=== PATIENT | female | born 1975 ===

== ENCOUNTER 2017-01-28 10:22 | Emergency (ER) | payer SELFPAY ==
[2017-01-28 10:32] VITALS: TEMP 98; O2SAT 100
--- NOTE | 2017-01-28 10:58 | RAD ---
PROCEDURE: CHEST RADIOGRAPH, 1 VIEW HISTORY: chest pain COMPARISON: None available. FINDINGS: LUNGS: Clear. PLEURA: No pneumothorax or pleural fluid seen. CARDIOVASCULAR: Normal. OSSEOUS STRUCTURES: No significant abnormalities. VISUALIZED UPPER ABDOMEN: Normal. OTHER FINDINGS: None. IMPRESSION: No acute cardiopulmonary disease appreciated.
[2017-01-28 11:07] LABS: BASO # 0.1 K/uL (0.0-0.2)
[2017-01-28 11:12] LABS: BASO % 0.7 % (0.0-2.0); EOS # 0.5 K/uL (0.0-0.7); EOS % 4.6 % (0.0-4.0); HEMATOCRIT 42.1 % (34.0-47.0); LYMPH % 26.6 % (20.0-40.0); MEAN CELL VOLUME 87.5 fL (81.0-99.0); MEAN CORPUSCULAR HEMOGLOBIN 29.7 pg (27.0-31.0); MONO # 1.2 K/uL (0.0-0.8); MONO % 10.1 % (0.0-10.0); NRBC % 0.3 % (0.0-2.0); RED CELL DISTRIBUTION WIDTH 13.6 % (11.5-14.5); WHITE BLOOD COUNT 11.4 K/uL (4.8-10.8)
[2017-01-28 11:50] LABS: CHLORIDE 102 mmol/L (98-107); POTASSIUM 4.3 mmol/L (3.6-5.2); SODIUM 135 mmol/L (132-148)
[2017-01-28 11:52] LABS: ALB/GLOB RATIO 0.9 (1.0-2.1); AST/SGOT 30 U/L (14-36); CARBON DIOXIDE 22 mmol/L (22-30); GFR AFRICAN-AMERICAN > 60
[2017-01-28 11:53] LABS: ALKALINE PHOSPHATASE 50 U/L (38-126); ALT/SGPT 28 U/L (9-52); BLOOD UREA NITROGEN 13 mg/dL (7-17); CALCIUM 9.5 mg/dl (8.6-10.4); GLUCOSE,RANDOM 95 mg/dL (65-105)
[2017-01-28 12:33] VITALS: BP 128/60; PULSE 69; RESP 12
--- NOTE | 2017-01-28 13:52 | C.PDOC ---
History Of Present Illness 41 yr old female presents to the ER with non radiating right sided chest pain for 1 week. Patient states the pain is made worse with movement with right arm and chest wall. Denies direct trauma, fever, chills, cough, palpitations, SOB, nausea, vomiting, weakness or numbness. Time Seen by Provider: 01/28/17 10:40 Chief Complaint (Nursing): Chest Pain History Per: Patient History/Exam Limitations: no limitations Onset/Duration Of Symptoms: Days (1 week) Past Medical History Reviewed: Historical Data, Nursing Documentation, Vital Signs Vital Signs: Last Vital Signs Temp 98 F 01/28/17 10:28 Pulse 69 01/28/17 12:33 Resp 12 01/28/17 12:33 BP 128/60 01/28/17 12:33 Pulse Ox 100 01/28/17 13:55 Family History: States: No Known Family Hx - Social History Hx Alcohol Use: No Hx Substance Use: No - Immunization History Hx Tetanus Toxoid Vaccination: No Hx Influenza Vaccination: No Hx Pneumococcal Vaccination: No Review Of Systems Except As Marked, All Systems Reviewed And Found Negative. Constitutional: Negative for: Fever, Chills Cardiovascular: Positive for: Chest Pain (Right sided ). Negative for: Palpitations Respiratory: Negative for: Cough, Shortness of Breath Gastrointestinal: Negative for: Nausea, Vomiting Neurological: Negative for: Weakness, Numbness Physical Exam - Physical Exam Appears: Non-toxic, No Acute Distress Skin: Warm, Dry, No Rash Head: Atraumatic, Normacephalic Oral Mucosa: Moist Chest: Symmetrical, Tenderness (Point tenderness to the right anterior chest wall) Cardiovascular: Rhythm Regular, No Murmur Respiratory: Normal Breath Sounds, No Rales, No Rhonchi, No Stridor, No Wheezing Extremity: Normal ROM, No Swelling Neurological/Psych: Oriented x3, Normal Speech, Normal Motor ED Course And Treatment - Laboratory Results Result Diagrams: 01/28/17 10:58 01/28/17 10:58 ECG: Interpreted By Me, Viewed By Me ECG Rhythm: Sinus Rhythm Rate From EC (BPM) O2 Sat by Pulse Oximetry: 100 (RA) Pulse Ox Interpretation: Normal - Other Rad CXR X-Ray: Viewed By Me, Read By Radiologist Interpretation: PROCEDURE: CHEST RADIOGRAPH, 1 VIEW. HISTORY: chest pain. COMPARISON: None available. FINDINGS: LUNGS: Clear. PLEURA: No pneumothorax or pleural fluid seen. CARDIOVASCULAR: Normal. OSSEOUS STRUCTURES: No significant abnormalities. VISUALIZED UPPER ABDOMEN: Normal. OTHER FINDINGS: None. IMPRESSION: No acute cardiopulmonary disease appreciated. Medical Decision Making Medical Decision Making: PLAN: * CXR * EKG * Troponin * CBC * CMP * Toradol IM Disposition - Disposition Referrals: [facility] [Outside] [facility] [Outside] Disposition: HOME/ ROUTINE Disposition Time: 12:00 Condition: IMPROVED Additional Instructions: Thank you for letting us take care of you today. Your provider was Dr. Alberto. You were treated for chest wall pain. The emergency medical care you received today was directed at your acute symptoms. If you were prescribed any medication, please fill it and take as directed. It may take several days for your symptoms to resolve. Return to the Emergency Department if your symptoms worsen, do not improve, or if you have any other problems. Please contact your doctor or call one of the physicians/clinics you have been referred to that are listed on the Patient Visit Information form that is included in your discharge packet. Bring any paperwork you were given at discharge with you along with any medications you are taking to your follow up visit. Our treatment cannot replace ongoing medical care by a primary care provider (PCP) outside of the emergency department. Thank you for allowing the [facility] team to be part of your care today. Follow up with the clinic for outpatient care in 3-5 days. Prescriptions: Ibuprofen [Motrin] 600 mg PO Q6 PRN #20 tab PRN Reason: Pain, Moderate (4-7) Instructions: Costochondritis (ED) Forms: Eferio (Romanian) - Clinical Impression Clinical Impression: Costochondritis - Scribe Statement The provider has reviewed the documentation as recorded by the Charlesibe Nancy Price Provider Attestation: All medical record entries made by the Charlesiblogan were at my direction and personally dictated by me. I have reviewed the chart and agree that the record accurately reflects my personal performance of the history, physical exam, medical decision making, and the department course for this patient. I have also personally directed, reviewed, and agree with the discharge instructions and disposition.
--- NOTE | 2017-01-31 12:41 | CARD ---
APPROVED REPORT EKG Measurement Heart [id number] <Conclusion> Normal sinus rhythm Normal ECG
== END 2017-01-28 12:33 | disposition home or self-care (01) ==
LOC: C.ER 10:22
DX: M94.0 Chondrocostal junction syndrome [Tietze] (principal)
CPT/HCPCS: 71010; 80053; 84484; 85025; 96374; 99284; J1885

== ENCOUNTER 2017-03-30 16:22 | Inpatient (IN) | payer OTHER ==
[2017-03-30 17:17] LABS: BASO # 0.1 K/uL (0.0-0.2); BASO % 0.8 % (0.0-2.0); EOS # 0.4 K/uL (0.0-0.7); HEMATOCRIT 37.6 % (34.0-47.0); LYMPH # 1.8 K/uL (1.0-4.3); LYMPH % 24.8 % (20.0-40.0); MEAN CORPUSCULAR HEMOGLOBIN 27.6 pg (27.0-31.0); MEAN CORPUSCULAR HGB CONC 32.6 g/dL (33.0-37.0); MEAN PLATELET VOLUME 7.6 fL (7.2-11.7); MONO # 0.7 K/uL (0.0-0.8); MONO % 9.4 % (0.0-10.0); NRBC % 0.3 % (0.0-2.0); RED CELL DISTRIBUTION WIDTH 13.7 % (11.5-14.5); WHITE BLOOD COUNT 7.1 K/uL (4.8-10.8)
--- NOTE | 2017-03-30 17:18 | C.PDOC ---
History Of Present Illness 42 year old female presents to the ED c/o pleuritic type upper back pain worsens with movement of her right arm and deep breaths. Patient was seen in the ED in mid January labs were normal and CXR was read as unremarkable and she was given Ibuprofen. She states taking her Ibuprofen with relief but her medication ran out. Patient reports last week she started feeling SOB developed a cough with yellowish sputum and a subjective fever. Patient reports that when she was 18 she was treated for TB. She states she has been well and denies night sweats or weight loss. Patient denies swelling of her legs, CP, palpitations, headache, dizziness, nausea, vomit. Time Seen by Provider: 03/30/17 16:56 Chief Complaint (Nursing): Chest Pain History Per: Patient History/Exam Limitations: no limitations Onset/Duration Of Symptoms: Days Current Symptoms Are (Timing): Still Present Quality: "Pain" Modifying Factors: None Exacerbating Factors: Movement, Deep Breathing Alleviating Factors: None Recent travel outside of the [place]: No Additional History Per: Patient Past Medical History Reviewed: Historical Data, Nursing Documentation, Vital Signs Vital Signs: Last Vital Signs Temp 97.9 F 03/30/17 16:33 Pulse 78 03/30/17 19:00 Resp 16 03/30/17 19:00 BP 123/66 03/30/17 19:00 Pulse Ox 100 03/30/17 20:03 - Medical History PMH: No Chronic Diseases Surgical History: No Surg Hx Family History: States: Unknown Family Hx - Social History Hx Alcohol Use: No Hx Substance Use: No - Immunization History Hx Tetanus Toxoid Vaccination: No Hx Influenza Vaccination: No Hx Pneumococcal Vaccination: No Review Of Systems Constitutional: Positive for: Fever, Sweats. Negative for: Chills, Weight loss Cardiovascular: Negative for: Chest Pain, Palpitations Respiratory: Positive for: Cough, SOB with Excertion, Sputum Gastrointestinal: Negative for: Nausea, Vomiting, Abdominal Pain Musculoskeletal: Positive for: Back Pain Skin: Negative for: Rash Neurological: Negative for: Weakness, Numbness, Headache Physical Exam - Physical Exam Appears: Non-toxic, No Acute Distress Skin: Normal Color, Warm, Dry Head: Atraumatic, Normacephalic Nose: No Discharge, No Deformity Oral Mucosa: Moist Neck: Normal ROM, Supple Chest: Symmetrical Cardiovascular: Rhythm Regular, No Murmur Respiratory: Normal Breath Sounds, No Rales, No Rhonchi, No Wheezing Gastrointestinal/Abdominal: Soft, No Tenderness, No Distention, No Rebound Extremity: Normal ROM, No Pedal Edema, No Calf Tenderness, No Deformity, No Swelling Neurological/Psych: Oriented x3, Normal Speech, Normal Cognition Gait: Steady ED Course And Treatment - Laboratory Results Result Diagrams: 03/30/17 17:13 03/30/17 17:13 Lab Interpretation: Normal O2 Sat by Pulse Oximetry: 100 (On RA) Pulse Ox Interpretation: Normal - Radiology CXR: Interpreted by [place] CXR Interpretation: Yes: Infiltrates (RUL), Other (small right pleural effusion) - CT Scan/US CT Angio Chest Other Rad Studies (CT/US): Read By Radiologist, Radiology Report Reviewed CT/US Interpretation: EXAM: CT Angiography Chest With Intravenous Contrast. EXAM DATE/TIME: 03/30/2017 5:07 PM. CLINICAL HISTORY: 42 years old, female; Signs and symptoms; Shortness of breath; Additional info: SOB. TECHNIQUE: Axial computed tomographic angiography images of the chest with intravenous contrast using. pulmonary embolism protocol. All CT scans at this facility use one or more dose reduction. techniques, viz.: automated exposure control; ma/ kV adjustment per patient size (including targeted. exams where dose is matched to indication; i.e. head); or iterative reconstruction technique. MIP reconstructed images were created and reviewed. Coronal and sagittal reformatted images were created and reviewed. CONTRAST: 100 mL of [id number] administered intravenously. COMPARISON: Portable chest 01/28/17. FINDINGS: Heart, aorta and Pulmonary arteries: Heart size is normal. There is no pericardial effusion.There is. no aneurysm or dissection. There is perfusion of the 3 arch vessels. There are no pulmonary emboli. Lungs and pleural spaces : Trachea and main bronchi are patent. There is right-sided volume loss. There is elevation of right hemidiaphragm. There is a small right pleural effusion. There is pleural thickening along the right chest wall. There is medial right upper lobe volume loss. There is patchy. right upper lobe opacity greatest medially and at the right apex. There is atelectasis and scarring at. the right base. There is more focal airspace disease in the inferior right lower lobe. Left lung is mildly hyperinflated. Left lung is clear. There is no left effusion. Mediastinum: Esophagus is unremarkable. There is a small hiatal hernia. There are no. pathologically enlarged mediastinal or hilar nodes. Thyroid: Thyroid is not optimally demonstrated. Bones/joints: There are no acute osseous abnormalities. There is early minimal degenerative. change. Soft tissues: unremarkable. Upper abdomen: There are no acute abnormalities in the visualized portion of the abdomen. There. are gallstones. IMPRESSION: Right-sided volume loss with small effusion; right upper lobe volume loss with patchy. airspace disease greatest at the apex suggest pneumonia, followup chest x-rays suggested to. document resolution; right lower lobe airspace disease atelectasis and/or infiltrate; no pathologic. adenopathy; no aneurysm, dissection or pulmonary embolus; gallstones Reevaluation Time: 21:05 Reassessment Condition: Improved (after Toradol) - Physician Consult Information Time Consulting Physician Contacted: 21:06 Physician Contacted: Max Alfonso Outcome Of Conversation: Patient to be admitted for RUL pneumonia, r/o reactivated TB. Medical Decision Making Medical Decision Making: Impression : pleuritic upper back pain, productive cough, fever Plan: * CT angio chest * EKG * Blood work * Toradol 30 mg IVP * UA Disposition - Disposition Disposition: HOSPITALIZED Disposition Time: 21:06 Condition: STABLE - Clinical Impression Clinical Impression: Pneumonia - Scribe Statement The provider has reviewed the documentation as recorded by the Scribe Hernan Ewing All medical record entries made by the Scribe were at my direction and personally dictated by me. I have reviewed the chart and agree that the record accurately reflects my personal performance of the history, physical exam, medical decision making, and the department course for this patient. I have also personally directed, reviewed, and agree with the discharge instructions and disposition.
[2017-03-30 17:19] LABS: MEAN CELL VOLUME 84.7 fL (81.0-99.0)
[2017-03-30 17:29] LABS: ALKALINE PHOSPHATASE 53 U/L (38-126); ALT/SGPT 44 U/L (9-52); AST/SGOT 23 U/L (14-36); BILIRUBIN,TOTAL 0.3 mg/dL (0.2-1.3); BLOOD UREA NITROGEN 14 mg/dL (7-17); CALCIUM 8.2 mg/dl (8.6-10.4); CARBON DIOXIDE 29 mmol/L (22-30); CHLORIDE 102 mmol/L (98-107); GFR AFRICAN-AMERICAN > 60; GLUCOSE,RANDOM 117 mg/dL (65-105); SODIUM 139 mmol/L (132-148); TOTAL PROTEIN 7.4 g/dL (6.3-8.3)
[2017-03-30] MEDS ORDERED: Iodixanol 320 mg/ml 150 ml Bottle IV ONE (18:05)
--- NOTE | 2017-03-30 19:55 | CT ---
EXAM: CT Angiography Chest With Intravenous Contrast EXAM DATE/TIME: 03/30/2017 5:07 PM CLINICAL HISTORY: 42 years old, female; Signs and symptoms; Shortness of breath; Additional info: SOB TECHNIQUE: Axial computed tomographic angiography images of the chest with intravenous contrast using pulmonary embolism protocol. All CT scans at this facility use one or more dose reduction techniques, viz.: automated exposure control; ma/kV adjustment per patient size (including targeted exams where dose is matched to indication; i.e. head); or iterative reconstruction technique. MIP reconstructed images were created and reviewed. Coronal and sagittal reformatted images were created and reviewed. CONTRAST: 100 mL of [id number] administered intravenously. COMPARISON: Portable chest 01/28/17. FINDINGS: Heart, aorta and Pulmonary arteries: Heart size is normal. There is no pericardial effusion.There is no aneurysm or dissection. There is perfusion of the 3 arch vessels. There are no pulmonary emboli. Lungs and pleural spaces: Trachea and main bronchi are patent. There is right-sided volume loss. There is elevation of right hemidiaphragm. There is a small right pleural effusion. There is pleural thickening along the right chest wall. There is medial right upper lobe volume loss. There is patchy right upper lobe opacity greatest medially and at the right apex. There is atelectasis and scarring at the right base. There is more focal airspace disease in the inferior right lower lobe. Left lung is mildly hyperinflated. Left lung is clear. There is no left effusion. Mediastinum: Esophagus is unremarkable. There is a small hiatal hernia. There are no pathologically enlarged mediastinal or hilar nodes. Thyroid: Thyroid is not optimally demonstrated. Bones/joints: There are no acute osseous abnormalities. There is early minimal degenerative change. Soft tissues: unremarkable Upper abdomen: There are no acute abnormalities in the visualized portion of the abdomen. There are gallstones. IMPRESSION: Right-sided volume loss with small effusion; right upper lobe volume loss with patchy airspace disease greatest at the apex suggest pneumonia, followup chest x-rays suggested to document resolution; right lower lobe airspace disease atelectasis and/or infiltrate; no pathologic adenopathy; no aneurysm, dissection or pulmonary embolus; gallstones
--- NOTE | 2017-03-31 01:33 | CP.PCM.HP ---
<Josephine Pollock - Last Filed: 03/31/17 01:33> History of Present Illness - History of Present Illness History of Present Illness: CC: cough HPI: Patient is a 42F with PMH of TB presents to the ED complaining of dry cough that started this morning. Patient says she has also had 2 month of achy right upper chest pain that goes directly into her back at the same level. Patient says she was concerned given her TB history which is why she decided to come in. Patient says she has tried ibuprofen for the pain which makes it better but the pain comes back when it wears off and she only takes the ibuprofen once a day. Patient was first diagnosed with TB at age 18 and she says she was treated in [place] with multiple medications "for a long time". Patient does not recall exactly how many medications or how long. Patient admits to night sweats one time this week as well as occasional generalized headache, SOB, and easy bruising. She denies chills, changes in vision/hearing, sore throat, dizziness, palpitations, abdominal pain, n/v/d/c, blood in urine/ stool, dysuria, leg pain/swelling, rashes, recent travel, sick contacts, change in appetite, and changes in weight. Patient is currently menstruating. PMD: none PMH: TB Meds: ibuprofen PRN pain PSH: denies FH: TB (mother), CVA (brother, sister, father) SH: denies tobacco/alcohol/drug use; lives with Present on Admission - Present on Admission Any Indicators Present on Admission: No Review of Systems - Review of Systems All systems: reviewed and no additional remarkable complaints except (as per HPI ) Past Patient History - Infectious Disease Hx of Infectious Diseases: None - Past Social History Smoking Status: Never Smoked - PSYCHIATRIC Hx Substance Use: No - SURGICAL HISTORY Hx Surgeries: No - ANESTHESIA Hx Anesthesia: No Meds Allergies/Adverse Reactions: Allergies Allergy/AdvReac Type Severity Reaction Status Date / Time No Known Allergies Allergy Verified 03/30/17 16:39 Physical Exam - Constitutional Appears: Non-toxic, No Acute Distress - Head Exam Head Exam: ATRAUMATIC, NORMOCEPHALIC - Eye Exam Eye Exam: EOMI, Normal appearance, PERRL - ENT Exam ENT Exam: Mucous Membranes Moist - Neck Exam Neck exam: Positive for: Normal Inspection. Negative for: Lymphadenopathy, Tenderness - Respiratory Exam Respiratory Exam: Clear to Auscultation Bilateral, NORMAL BREATHING PATTERN. absent: Accessory Muscle Use, Chest Wall Tenderness, Rales, Rhonchi, Wheezes, Respiratory Distress - Cardiovascular Exam Cardiovascular Exam: RRR, +S1, +S2. absent: Bradycardia, Tachycardia, Diastolic murmur, Gallop, Rubs, Systolic Murmur - GI/Abdominal Exam GI & Abdominal Exam: Normal Bowel Sounds, Soft. absent: Distended, Tenderness - Extremities Exam Extremities exam: Positive for: normal capillary refill, normal inspection, pedal pulses present. Negative for: calf tenderness, pedal edema - Back Exam Back exam: absent: rash noted, tenderness - Neurological Exam Neurological exam: Alert, Oriented x3 - Psychiatric Exam Psychiatric exam: Normal Affect, Normal Mood - Skin Skin Exam: Dry, Intact, Normal Color, Warm Results - Vital Signs Recent Vital Signs: Last Vital Signs Temp 98.5 F 03/30/17 23:30 Pulse 70 03/30/17 23:30 Resp 16 03/30/17 23:30 BP 144/79 03/30/17 23:30 Pulse Ox 95 03/30/17 23:30 - Labs Result Diagrams: 03/30/17 17:13 03/30/17 17:13 Labs: Laboratory Results - last 24 hr 03/30/17 03/30/17 03/30/17 17:13 17:13 17:13 WBC 7.1 RBC 4.44 Hgb 12.2 D Hct 37.6 MCV 84.7 D MCH 27.6 MCHC 32.6 L RDW 13.7 Plt Count 372 MPV 7.6 Neut % (Auto) 59.0 Lymph % (Auto) 24.8 [place] % (Auto) 9.4 Eos % (Auto) 6.0 H Baso % (Auto) 0.8 Neut # 4.2 Lymph # 1.8 [place] # 0.7 Eos # 0.4 Baso # 0.1 D-Dimer, Quantitative 1013 H Sodium 139 Potassium 4.0 Chloride 102 Carbon Dioxide 29 Anion Gap 12 BUN 14 Creatinine 0.9 Est GFR ( Amer) > 60 Est GFR (Non-Af Amer) > 60 Random Glucose 117 H Calcium 8.2 L Total Bilirubin 0.3 AST 23 ALT 44 Alkaline Phosphatase 53 Total Protein 7.4 Albumin 3.7 Globulin 3.7 Albumin/Globulin Ratio 1.0 Urine HCG, Qual 03/30/17 17:24 WBC RBC Hgb Hct MCV MCH MCHC RDW Plt Count MPV Neut % (Auto) Lymph % (Auto) [place] % (Auto) Eos % (Auto) Baso % (Auto) Neut # Lymph # [place] # Eos # Baso # D-Dimer, Quantitative Sodium Potassium Chloride Carbon Dioxide Anion Gap BUN Creatinine Est GFR ( Amer) Est GFR (Non-Af Amer) Random Glucose Calcium Total Bilirubin AST ALT Alkaline Phosphatase Total Protein Albumin Globulin Albumin/Globulin Ratio Urine HCG, Qual Negative Assessment & Plan - Assessment and Plan (Free Text) Plan: TB vs PNA * afebrile, WBCs WNL * f/u CXR * CT chest: Right-sided volume loss with small effusion; right upper lobe volume loss with patchy airspace disease greatest at the apex suggest pneumonia , followup chest x-rays suggested to document resolution; right lower lobe airspace disease atelectasis and/or infiltrate; no pathologic adenopathy; no aneurysm, dissection or pulmonary embolus; gallstones * Pulm consult (Kuldeep) - recs appreciated * ID consult (Pam) - recs appreciated * Sputum AFB x3 * sputum culture * HIV * ESR * Ceftriaxone 1g IV QD * Tylenol PRN pain Elevated D-dimer * CT chest: Right-sided volume loss with small effusion; right upper lobe volume loss with patchy airspace disease greatest at the apex suggest pneumonia , followup chest x-rays suggested to document resolution; right lower lobe airspace disease atelectasis and/or infiltrate; no pathologic adenopathy; no aneurysm, dissection or pulmonary embolus; gallstones Prohpylaxis * Heparin * Pepcid * SCDs * Urine HCG: negative <Max Alfonso P - Last Filed: 03/31/17 07:35> Results - Vital Signs Recent Vital Signs: Last Vital Signs Temp 98.0 F 03/31/17 00:10 Pulse 68 03/31/17 00:10 Resp 20 03/31/17 00:10 BP 130/74 03/31/17 00:10 Pulse Ox 100 03/31/17 00:10 - Labs Result Diagrams: 03/30/17 17:13 03/30/17 17:13 Labs: Laboratory Results - last 24 hr 03/30/17 03/30/17 03/30/17 17:13 17:13 17:13 WBC 7.1 RBC 4.44 Hgb 12.2 D Hct 37.6 MCV 84.7 D MCH 27.6 MCHC 32.6 L RDW 13.7 Plt Count 372 MPV 7.6 Neut % (Auto) 59.0 Lymph % (Auto) 24.8 [place] % (Auto) 9.4 Eos % (Auto) 6.0 H Baso % (Auto) 0.8 Neut # 4.2 Lymph # 1.8 [place] # 0.7 Eos # 0.4 Baso # 0.1 D-Dimer, Quantitative 1013 H Sodium 139 Potassium 4.0 Chloride 102 Carbon Dioxide 29 Anion Gap 12 BUN 14 Creatinine 0.9 Est GFR ( Amer) > 60 Est GFR (Non-Af Amer) > 60 Random Glucose 117 H Calcium 8.2 L Total Bilirubin 0.3 AST 23 ALT 44 Alkaline Phosphatase 53 Total Protein 7.4 Albumin 3.7 Globulin 3.7 Albumin/Globulin Ratio 1.0 Urine HCG, Qual 03/30/17 17:24 WBC RBC Hgb Hct MCV MCH MCHC RDW Plt Count MPV Neut % (Auto) Lymph % (Auto) [place] % (Auto) Eos % (Auto) Baso % (Auto) Neut # Lymph # [place] # Eos # Baso # D-Dimer, Quantitative Sodium Potassium Chloride Carbon Dioxide Anion Gap BUN Creatinine Est GFR ( Amer) Est GFR (Non-Af Amer) Random Glucose Calcium Total Bilirubin AST ALT Alkaline Phosphatase Total Protein Albumin Globulin Albumin/Globulin Ratio Urine HCG, Qual Negative Attending/Attestation - Attestation I have personally seen and examined this patient.: Yes I have fully participated in the care of the patient.: Yes I have reviewed all pertinent clinical information: Yes Notes (Text): 42 F treated for pulm TB, 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 2 months back started to have right side CP on breathing, CXR 2 months ago shows some right upper lobe volume loss and suspected scarring. CT yesterday shows small amount of right pl effusion, maddie scaring in RUL, and some soft tissue density, patient presented for persistence of symptoms, denies weight loss, fevers, loss of appetite, but c /o some night sweats, cough and pleuretic pain. Plan AFB isolation Induced sputum for AFB semear and culture Pulm consult for Bronch IR eval for diagnostic purpose drain of very small effusion if feasible Non TB cross reacting abx, starting rocephin See orders for detail.
[2017-03-31] MEDS ORDERED: Pneumococcal 23-Valent Vaccine IM ONE ×2 (03:23→14:00)
[2017-03-31 07:50] LABS: BASO % 0.6 % (0.0-2.0); EOS # 0.4 K/uL (0.0-0.7); EOS % 6.4 % (0.0-4.0); HEMATOCRIT 37.5 % (34.0-47.0); LYMPH # 1.6 K/uL (1.0-4.3); LYMPH % 23.2 % (20.0-40.0); MEAN CELL VOLUME 84.6 fL (81.0-99.0); MEAN CORPUSCULAR HGB CONC 33.1 g/dL (33.0-37.0); MEAN PLATELET VOLUME 8.1 fL (7.2-11.7); MONO # 0.7 K/uL (0.0-0.8); NRBC % 0.1 % (0.0-2.0); RED CELL DISTRIBUTION WIDTH 13.9 % (11.5-14.5); WHITE BLOOD COUNT 6.8 K/uL (4.8-10.8)
[2017-03-31 07:57] LABS: ALKALINE PHOSPHATASE 53 U/L (38-126); ALT/SGPT 34 U/L (9-52); AST/SGOT 27 U/L (14-36); BILIRUBIN,TOTAL 0.6 mg/dL (0.2-1.3); BLOOD UREA NITROGEN 14 mg/dL (7-17); CALCIUM 8.1 mg/dl (8.6-10.4); CARBON DIOXIDE 25 mmol/L (22-30); CHLORIDE 106 mmol/L (98-107); GFR AFRICAN-AMERICAN > 60; GLUCOSE,RANDOM 102 mg/dL (65-105); POTASSIUM 3.9 mmol/L (3.6-5.2); SODIUM 138 mmol/L (132-148); TOTAL PROTEIN 7.3 g/dL (6.3-8.3)
--- NOTE | 2017-03-31 09:00 | RAD ---
Chest x-ray two views History: Pneumonia. Comparison: 01/28/2017 Findings: Small right pleural effusion. Patchy increased markings at the right lung base. Reticular opacities at the right lung apex of uncertain clinical etiology. This may be related to external apparatus. Clinical correlation. Alternatively, correlation with chest CT may be helpful if clinically indicated. Impression: Small right pleural effusion. Patchy increased markings at the right lung base. Reticular opacities at the right lung apex of uncertain clinical etiology. This may be related to external apparatus. Clinical correlation. Alternatively, correlation with chest CT may be helpful if clinically indicated.
--- NOTE | 2017-03-31 12:18 | CARD ---
APPROVED REPORT EKG Measurement Heart [id number] <Conclusion> Normal sinus rhythm Normal ECG
--- NOTE | 2017-03-31 13:39 | CP.PCM.PN ---
<Kelly Wang Sommer - Last Filed: 03/31/17 15:43> Subjective - Date & Time of Evaluation Date of Evaluation: 03/31/17 Time of Evaluation: 08:50 - Subjective Subjective: Medicine Note (PGY-1)-----> Dr. Vargas's service Patient was seen and examined at bedside. Patient was resting comfortably in bed. Patient states that she is doing well and has no complaints. Patient admits to right trapzeium strain and intermittent occipital headache but denies fever, chills, cough, nausea, vomiting, chest pain, SOB, palpitations, pain with inspiration. Patient is tolerating diet and ambulating. Objective - Vital Signs/Intake and Output Vital Signs (last 24 hours): Temp Pulse Resp BP Pulse Ox 98.3 F 63 20 123/73 100 03/31/17 07:00 03/31/17 07:00 03/31/17 07:00 03/31/17 07:00 03/31/17 07:00 Intake and Output: 03/31/17 03/31/17 06:59 18:59 Intake Total 200 Balance 200 - Medications Medications: Current Medications Acetaminophen (Tylenol 325mg Tab) 650 mg PO Q6 PRN PRN Reason: Pain, moderate (4-7) Acetylcysteine (Acetylcysteine 20%) 4 ml INH RQ8 [facility] Albuterol/Ipratropium (Duoneb 3 Mg/0.5 Mg (3 Ml) Ud) 3 ml INH RQ8 [facility] Famotidine (Pepcid) 20 mg PO BID [facility] Last Admin: 03/31/17 09:41 Dose: 20 mg Heparin Sodium (Porcine) (Heparin) 5,000 units SC Q12 [facility] Last Admin: 03/31/17 09:41 Dose: 5,000 units Ceftriaxone Sodium 1 gm/ (Sodium Chloride) 100 mls @ 200 mls/hr IVPB DAILY [facility] Last Admin: 03/31/17 09:42 Dose: 200 mls/hr Pneumococcal Polyvalent Vaccine (Pneumovax 23 Vaccine) 0.5 ml IM .ONCE ONE Stop: 04/02/17 10:01 - Labs Labs: 03/31/17 07:12 03/31/17 07:12 - Constitutional Appears: Well, No Acute Distress - Head Exam Head Exam: ATRAUMATIC, NORMAL INSPECTION - Eye Exam Eye Exam: EOMI, Normal appearance - ENT Exam ENT Exam: Mucous Membranes Moist - Respiratory Exam Respiratory Exam: Clear to Ausculation Bilateral, NORMAL BREATHING PATTERN - Cardiovascular Exam Cardiovascular Exam: REGULAR RHYTHM, +S1, +S2 - GI/Abdominal Exam GI & Abdominal Exam: Soft, Normal Bowel Sounds. absent: Tenderness, Hypoactive Bowel Sounds - Extremities Exam Extremities Exam: Normal Inspection. absent: Calf Tenderness, Pedal Edema - Neurological Exam Neurological Exam: Alert, Awake, Oriented x3 - Psychiatric Exam Psychiatric exam: Normal Affect, Normal Mood - Skin Skin Exam: Normal Color, Warm Assessment and Plan (1) Strain of right trapezius muscle Assessment & Plan: Pain control * Tylenol 650mg PO Q6 prn ( Moderate pain) * Toradol 15mg IV Q6 prn ( Severe pain) Educated stretching exercise for the trapezium muscle Status: Acute (2) History of treatment for tuberculosis Assessment & Plan: Diagnosed at 18 and treated R/o active TB: * F/U AFB culture and smear Duonebs Q8H and Acetylcystein INH q8h to induce sputum production Imaging: CT chest:Right-sided volume loss with small effusion; right upper lobe volume loss with patchy airspace disease greatest at the apex suggest pneumonia, followup chest x-rays suggested to document resolution; right lower lobe airspace disease atelectasis and/or infiltrate; no pathologic adenopathy; no aneurysm, dissection or pulmonary embolus; gallstones Chest X-ray: Small right pleural effusion. Patchy increased markings at the right lung base. Reticular opacities at the right lung apex of uncertain clinical etiology. This may be related to external apparatus. Clinical correlation. Alternatively, correlation with chest CT may be helpful if clinically indicated. Status: Acute (3) Elevated d-dimer Assessment & Plan: On admission: 1013 CT Chest: Right-sided volume loss with small effusion; right upper lobe volume loss with patchy airspace disease greatest at the apex suggest pneumonia, followup chest x-rays suggested to document resolution; right lower lobe airspace disease atelectasis and/or infiltrate; no pathologic adenopathy; no aneurysm, dissection or pulmonary embolus; gallstones Status: Acute (4) Pneumonia Assessment & Plan: Possible Pneumonia as per CT chest reading CT chest:Right-sided volume loss with small effusion; right upper lobe volume loss with patchy airspace disease greatest at the apex suggest pneumonia, followup chest x-rays suggested to document resolution; right lower lobe airspace disease atelectasis and/or infiltrate; no pathologic adenopathy; no aneurysm, dissection or pulmonary embolus; gallstones Chest X-ray: Small right pleural effusion. Patchy increased markings at the right lung base. Reticular opacities at the right lung apex of uncertain clinical etiology. This may be related to external apparatus. Clinical correlation. Alternatively, correlation with chest CT may be helpful if clinically indicated. Medications: * Rocephin 1gm daily Status: Acute (5) Prophylactic measure Assessment & Plan: GI: Pepcid 20mg PO daily DVT: Risk score : 1 point; SCDs Status: Acute <AliciaMarshal H - Last Filed: 03/31/17 17:58> Objective - Vital Signs/Intake and Output Vital Signs (last 24 hours): Temp Pulse Resp BP Pulse Ox 97.8 F 75 20 126/76 98 03/31/17 15:55 03/31/17 17:03 03/31/17 15:55 03/31/17 15:55 03/31/17 15:55 Intake and Output: 03/31/17 03/31/17 06:59 18:59 Intake Total 300 Balance 300 - Medications Medications: Current Medications Acetaminophen (Tylenol 325mg Tab) 650 mg PO Q6 PRN PRN Reason: Pain, moderate (4-7) Acetylcysteine (Acetylcysteine 20%) 4 ml INH RQ8 [facility] Last Admin: 03/31/17 17:00 Dose: 4 ml Albuterol/Ipratropium (Duoneb 3 Mg/0.5 Mg (3 Ml) Ud) 3 ml INH RQ8 [facility] Last Admin: 03/31/17 17:00 Dose: 3 ml Famotidine (Pepcid) 20 mg PO DAILY [facility] Ceftriaxone Sodium 1 gm/ (Sodium Chloride) 100 mls @ 200 mls/hr IVPB DAILY [facility] Last Admin: 03/31/17 09:42 Dose: 200 mls/hr Ketorolac Tromethamine (Toradol) 15 mg IVP Q6 PRN PRN Reason: Pain, severe (8-10) Pneumococcal Polyvalent Vaccine (Pneumovax 23 Vaccine) 0.5 ml IM .ONCE ONE Stop: 04/01/17 10:01 - Labs Labs: 03/31/17 07:12 03/31/17 07:12 Attending/Attestation - Attestation I have personally seen and examined this patient.: Yes I have fully participated in the care of the patient.: Yes I have reviewed all pertinent clinical information, including history, physical exam and plan: Yes Notes (Text): 03/31/17 17:58 Medical attending: The patient was seen and examined by me as well, reviewed the above note by the medical services manager and agree. Patient was not in any acute distress when we saw her. She was not coughing, she was not having fevers, not reporting chills, she was not short of breath. She looked very comfortable when we saw her. As documented above the resident note there is a history of tuberculosis and when she came in, the patient explained to the emergency room that she was unsure if she was having musculoskeletal pain or possible reactivation of her tuberculosis and that is why she came in. She had a CT scan of the chest I looked at the right apex has a lot of scarring and may either be from the TV that she had many years ago or possibly a new pneumonia. She is on chronic antibiotics regardless So because of this she is now currently under isolation, we are trying to get sputum AFBs to induce the sputum is however this may prove to be difficult With regards to her right arm pain the patient status that she does a lot of physical labor for work, so it is possible that she could've strained a muscle. The pain is reproducible on exam Thank you so much, Marshal Vargas
[2017-03-31] MEDS ORDERED: Influenza Vaccine 60 mcg/0.5 mL SYR (4YR UP) IM ONE (14:00)
[2017-03-31] MEDS: Albuterol-Ipratrop 3 mg / 0.5 (3 ml) UD INH SCH (17:00)
[2017-03-31] MEDS: Acetylcysteine 20% Inhal Soln (4ml) INH SCH (17:00)
--- NOTE | 2017-03-31 18:30 | CP.PCM.CON ---
History of Present Illness - History of Present Illness History of Present Illness: 42 year old female presents to the ED c/o pleuritic type upper back pain Patient was seen in the ED in mid January labs were normal and CXR was read as unremarkable and she was given Ibuprofen. However last week she started feeling SOB developed a cough with yellowish sputum and a subjective fever. Patient reports that when she was 18 she was treated for TB. She states she has been well and denies night sweats or weight loss. Review of Systems - Constitutional Constitutional: As Per HPI - EENT Eyes: absent: As Per HPI, Blind Spots, Blurred Vision, Change in Vision, Decreased Night Vision, Diplopia, Discharge, Dry Eye, Exophthalmos, Floaters, Irritation, Itchy Eyes, Loss of Peripheral Vision, Pain, Photophobia, Requires Corrective Lenses, Sees Flashes, Spots in Vision, Tunnel Vision, Other Visual Disturbances, Loss of Vision, Other Nose/Mouth/Throat: absent: As Per HPI, Epistaxis, Nasal Congestion, Nasal Discharge, Nasal Obstruction, Nasal Trauma, Nose Pain, Post Nasal Drip, Sinus Pain, Sinus Pressure, Bleeding Gums, Change in Voice, Dental Pain, Dry Mouth, Dysphagia, Halitosis, Hoarsness, Lip Swelling, Mouth Lesions, Mouth Pain, Odynophagia, Sore Throat, Throat Swelling, Tongue Swelling, Facial Pain, Neck Pain, Neck Mass, Other - Breasts Breasts: absent: As Per HPI, Change in Shape, Mass, Pain, Nipple Discharge, Nipple Inversion, Skin Changes, Swelling, Other - Cardiovascular Cardiovascular: absent: As Per HPI, Acrocyanosis, Chest Pain, Chest Pain at Rest , Chest Pain with Activity, Claudication, Diaphoresis, Dyspnea, Dyspnea on Exertion, Edema, Irregular Heart Rhythm, Pain Radiating to Arm/Neck/Jaw, Leg Edema, Leg Ulcers, Lightheadedness, Orthopnea, Palpitations, Paroxysmal Nocturnal Dyspnea, Pedal Edema, Radiating Pain, Rapid Heart Rate, Slow Heart Rate, Syncope, Other - Respiratory Respiratory: As Per HPI - Gastrointestinal Gastrointestinal: absent: As Per HPI, Abdominal Pain, Belching, Bloating, Change in Bowel Habits, Change in Stool Character, Coffee Ground Emesis, Constipation, Cramping, Diarrhea, Dyspepsia, Dysphagia, Early Satiety, Excessive Flatus, Fecal Incontinence, Heartburn, Hematemesis, Hematochezia, Loose Stools, Melena, Nausea, Odynophagia, Temesmus, Vomiting, Other - Genitourinary Genitourinary: absent: As Per HPI, Change in Urinary Stream, Difficulty Urinating, Dysuria, Flank Pain, Hematuria, Pyuria, Nocturia, Urinary Incontinence, Urinary Frequency, Urinary Hesitance, Urinary Urgency, Voiding Freq/Small Amts, Freq UTI, Hx Renal/Bladder Calculi, Hx /Renal Surgery, Bladder Distension, Other - Reproductive: Female Reproductive:Female: absent: As Per HPI, Amenorrhea, Amenorrhea/ Control, Currently Menstual, Cycle <21 Days, Cycle >35 Days, Cycle Variable, Menses 1-7 Days, Menses >/= 8 Days, Menses Variable, Cycle > 4 Weeks Between, No Menses for 6 Months, Heavy Menses, Light Menses, Normal Menses, Spotting Between Cycles , S/P Hysterectomy, Menopausal, Post Menopausal, Premenarche, Abnormal Vaginal Bleeding, Dysmenorrhea, Dyspareunia, Genital Lesions, Genital Pruritis, Pelvic Pain, Prolapse Symptoms, Sexual Dysfunction, Vaginal Discharge, Vaginal Dryness , Vaginal Odor, Vaginal Pruritis, Other - Menstruation Menstruation: absent: As Per HPI, Amenorrhea, Amenorrhea/ Control, Currently Menstual, Cycle <21 Days, Cycle >35 Days, Cycle Variable, Menses 1-7 Days, Menses >/= 8 Days, Menses Variable, Cycle > 4 Weeks Between, No Menses for 6 Months, Heavy Menses, Light Menses, Normal Menses, Spotting Between Cycles , S/P Hysterectomy, Menopausal, Post Menopausal, Premenarche, Abnormal Vaginal Bleeding, Dysmenorrhea, Other - Musculoskeletal Musculoskeletal: As Per HPI - Integumentary Integumentary: absent: As Per HPI, Acne, Alopecia, Bleeding Lesions, Change in Hair, Change in Nails, Change in Pigmentation, Changing Lesions, Dry Skin, Erythema, Furuncle, Hirsutism, Lesions, New Lesions, Non-Healing Lesions, Photosensitivity, Pruritus, Rash, Skin Pain, Skin Ulcer, Sores, Striae, Swelling , Unusual Bruising, Wounds, Jaundice, Other - Neurological Neurological: absent: As Per HPI, Abnormal Gait, Abnormal Hearing, Abnormal Movements, Abnormal Speech, Behavioral Changes, Burning Sensations, Confusion, Convulsions, Disequilibrium, Dizziness, Numbness, Focal Weakness, Frequent Falls , Headaches, Lack of Coordination, Loss of Vision, Memory Loss, Paresthesias, Radicular Pain, Restless Legs, Sensory Deficit, Syncope, Tingling, Tremor, Vertigo, Weakness, Other Visual Disturbances, Other - Psychiatric Psychiatric: absent: As Per HPI, Abnormal Sleep Pattern, Anhedonia, Anxiety, Auditory Hallucinations, Behavioral Changes, Change in Appetite, Change in Libido, Confusion, Depression, Difficulty Concentrating, Hallucinations, Homicidal Ideation, Hopelessness, Irritability, Memory Loss, Mood Swings, Panic Attacks, Paranoia, Suicidal Ideation, Visual Hallucinations, Tactile Hallucinations, Other - Endocrine Endocrine: absent: As Per HPI, Change in Body Appearance, Change in Libido, Cold Intolorance, Deepening of Voice, Excessive Sweating, Fatigue, Flushing, Heat Intolorance, Increase in Ring/Shoe/Hat Size, Palpitations, Polydipsia, Polyphagia, Polyuria, Other - Hematologic/Lymphatic Hematologic: absent: As Per HPI, Easy Bleeding, Easy Bruising, Lymphadenopathy, Other Past Patient History - Infectious Disease Hx of Infectious Diseases: None - Past Medical History & Family History Past Medical History?: Yes - Past Social History Smoking Status: Never Smoked - CARDIAC Hx Cardiac Disorders: No - PULMONARY Hx Respiratory Disorders: Yes Hx Sleep Apnea: Yes - NEUROLOGICAL Hx Neurological Disorder: No - HEENT Hx HEENT Problems: No - RENAL Hx Chronic Kidney Disease: No - ENDOCRINE/METABOLIC Hx Endocrine Disorders: No - HEMATOLOGICAL/ONCOLOGICAL Hx Blood Disorders: No - INTEGUMENTARY Hx Dermatological Problems: No - MUSCULOSKELETAL/RHEUMATOLOGICAL Hx Falls: No - GASTROINTESTINAL Hx Gastrointestinal Disorders: No - GENITOURINARY/GYNECOLOGICAL Hx Genitourinary Disorders: No - PSYCHIATRIC Hx Substance Use: No - SURGICAL HISTORY Hx Surgeries: No - ANESTHESIA Hx Anesthesia: No Meds Allergies/Adverse Reactions: Allergies Allergy/AdvReac Type Severity Reaction Status Date / Time No Known Allergies Allergy Verified 03/30/17 16:39 - Medications Medications: Current Medications Acetaminophen (Tylenol 325mg Tab) 650 mg PO Q6 PRN PRN Reason: Pain, moderate (4-7) Acetylcysteine (Acetylcysteine 20%) 4 ml INH RQ8 [facility] Last Admin: 03/31/17 17:00 Dose: 4 ml Albuterol/Ipratropium (Duoneb 3 Mg/0.5 Mg (3 Ml) Ud) 3 ml INH RQ8 [facility] Last Admin: 03/31/17 17:00 Dose: 3 ml Famotidine (Pepcid) 20 mg PO DAILY [facility] Ceftriaxone Sodium 1 gm/ (Sodium Chloride) 100 mls @ 200 mls/hr IVPB DAILY [facility] Last Admin: 03/31/17 09:42 Dose: 200 mls/hr Ketorolac Tromethamine (Toradol) 15 mg IVP Q6 PRN PRN Reason: Pain, severe (8-10) Pneumococcal Polyvalent Vaccine (Pneumovax 23 Vaccine) 0.5 ml IM .ONCE ONE Stop: 04/01/17 10:01 Physical Exam - Constitutional Appears: No Acute Distress - Head Exam Head Exam: NORMOCEPHALIC - Eye Exam Eye Exam: PERRL - ENT Exam ENT Exam: Mucous Membranes Dry - Neck Exam Neck exam: Negative for: Lymphadenopathy - Respiratory Exam Respiratory Exam: Decreased Breath Sounds, Clear to Auscultation Bilateral - Cardiovascular Exam Cardiovascular Exam: REGULAR RHYTHM, +S1, +S2 - GI/Abdominal Exam GI & Abdominal Exam: Diminished Bowel Sounds, Soft. absent: Tenderness - Rectal Exam Rectal Exam: Deferred - Exam Exam: NORMAL INSPECTION - Extremities Exam Extremities exam: Negative for: pedal edema - Back Exam Back exam: absent: CVA tenderness (L), CVA tenderness (R) - Neurological Exam Neurological exam: Alert, CN II-XII Intact, Oriented x3, Reflexes Normal - Psychiatric Exam Psychiatric exam: Normal Mood Results - Vital Signs Recent Vital Signs: Last Vital Signs Temp 97.8 F 03/31/17 15:55 Pulse 75 03/31/17 17:03 Resp 20 03/31/17 15:55 BP 126/76 03/31/17 15:55 Pulse Ox 98 03/31/17 15:55 - Labs Result Diagrams: 03/31/17 07:12 03/31/17 07:12 Labs: Laboratory Results - last 24 hr 03/31/17 03/31/17 07:12 07:12 WBC 6.8 RBC 4.43 Hgb 12.4 Hct 37.5 MCV 84.6 MCH 28.0 MCHC 33.1 RDW 13.9 Plt Count 361 MPV 8.1 Neut % (Auto) 58.8 Lymph % (Auto) 23.2 [place] % (Auto) 11.0 H Eos % (Auto) 6.4 H Baso % (Auto) 0.6 Neut # 4.0 Lymph # 1.6 [place] # 0.7 Eos # 0.4 Baso # 0.0 Sodium 138 Potassium 3.9 Chloride 106 Carbon Dioxide 25 Anion Gap 11 BUN 14 Creatinine 0.8 Est GFR ( Amer) > 60 Est GFR (Non-Af Amer) > 60 Random Glucose 102 Calcium 8.1 L Total Bilirubin 0.6 AST 27 ALT 34 Alkaline Phosphatase 53 Total Protein 7.3 Albumin 3.7 Globulin 3.7 Albumin/Globulin Ratio 1.0 Assessment & Plan (1) History of treatment for tuberculosis Status: Acute (2) Pneumonia Status: Acute - Assessment and Plan (Free Text) Assessment: x ray findings consistent with old TB await afb smears to r/o re-activation ( quantiferon and PPD will both be positive ) may need FOB as not able to produce sputum
--- NOTE | 2017-03-31 18:37 | CP.PCM.CON ---
History of Present Illness - History of Present Illness History of Present Illness: right shoulder pain, related to work no cough, no sputum, no fever, no wt loss, good appetite h/o old tb treated fully at age 18 Review of Systems - Review of Systems All systems: reviewed and no additional remarkable complaints except - Musculoskeletal Musculoskeletal: Arthralgias Past Patient History - Infectious Disease Hx of Infectious Diseases: None - Past Medical History & Family History Past Medical History?: Yes - Past Social History Smoking Status: Never Smoked - CARDIAC Hx Cardiac Disorders: No - PULMONARY Hx Respiratory Disorders: Yes Hx Sleep Apnea: Yes - NEUROLOGICAL Hx Neurological Disorder: No - HEENT Hx HEENT Problems: No - RENAL Hx Chronic Kidney Disease: No - ENDOCRINE/METABOLIC Hx Endocrine Disorders: No - HEMATOLOGICAL/ONCOLOGICAL Hx Blood Disorders: No - INTEGUMENTARY Hx Dermatological Problems: No - MUSCULOSKELETAL/RHEUMATOLOGICAL Hx Falls: No - GASTROINTESTINAL Hx Gastrointestinal Disorders: No - GENITOURINARY/GYNECOLOGICAL Hx Genitourinary Disorders: No - PSYCHIATRIC Hx Substance Use: No - SURGICAL HISTORY Hx Surgeries: No - ANESTHESIA Hx Anesthesia: No Meds Allergies/Adverse Reactions: Allergies Allergy/AdvReac Type Severity Reaction Status Date / Time No Known Allergies Allergy Verified 03/30/17 16:39 - Medications Medications: Current Medications Acetaminophen (Tylenol 325mg Tab) 650 mg PO Q6 PRN PRN Reason: Pain, moderate (4-7) Acetylcysteine (Acetylcysteine 20%) 4 ml INH RQ8 [facility] Last Admin: 03/31/17 17:00 Dose: 4 ml Albuterol/Ipratropium (Duoneb 3 Mg/0.5 Mg (3 Ml) Ud) 3 ml INH RQ8 [facility] Last Admin: 03/31/17 17:00 Dose: 3 ml Famotidine (Pepcid) 20 mg PO DAILY [facility] Ceftriaxone Sodium 1 gm/ (Sodium Chloride) 100 mls @ 200 mls/hr IVPB DAILY [facility] Last Admin: 03/31/17 09:42 Dose: 200 mls/hr Ketorolac Tromethamine (Toradol) 15 mg IVP Q6 PRN PRN Reason: Pain, severe (8-10) Pneumococcal Polyvalent Vaccine (Pneumovax 23 Vaccine) 0.5 ml IM .ONCE ONE Stop: 04/01/17 10:01 Physical Exam - Constitutional Appears: No Acute Distress - Head Exam Head Exam: ATRAUMATIC, NORMOCEPHALIC - Eye Exam Eye Exam: Normal appearance - ENT Exam ENT Exam: Mucous Membranes Moist - Neck Exam Neck exam: Positive for: Normal Inspection - Respiratory Exam Respiratory Exam: Clear to Auscultation Bilateral - Cardiovascular Exam Cardiovascular Exam: REGULAR RHYTHM, +S1, +S2 - GI/Abdominal Exam GI & Abdominal Exam: Normal Bowel Sounds - Rectal Exam Rectal Exam: Deferred - Neurological Exam Neurological exam: Alert, Oriented x3 - Psychiatric Exam Psychiatric exam: Normal Affect, Normal Mood - Skin Skin Exam: Intact Results - Vital Signs Recent Vital Signs: Last Vital Signs Temp 97.8 F 03/31/17 15:55 Pulse 75 03/31/17 17:03 Resp 20 03/31/17 15:55 BP 126/76 03/31/17 15:55 Pulse Ox 98 03/31/17 15:55 - Labs Result Diagrams: 03/31/17 07:12 03/31/17 07:12 Labs: Laboratory Results - last 24 hr 03/31/17 03/31/17 07:12 07:12 WBC 6.8 RBC 4.43 Hgb 12.4 Hct 37.5 MCV 84.6 MCH 28.0 MCHC 33.1 RDW 13.9 Plt Count 361 MPV 8.1 Neut % (Auto) 58.8 Lymph % (Auto) 23.2 [place] % (Auto) 11.0 H Eos % (Auto) 6.4 H Baso % (Auto) 0.6 Neut # 4.0 Lymph # 1.6 [place] # 0.7 Eos # 0.4 Baso # 0.0 Sodium 138 Potassium 3.9 Chloride 106 Carbon Dioxide 25 Anion Gap 11 BUN 14 Creatinine 0.8 Est GFR ( Amer) > 60 Est GFR (Non-Af Amer) > 60 Random Glucose 102 Calcium 8.1 L Total Bilirubin 0.6 AST 27 ALT 34 Alkaline Phosphatase 53 Total Protein 7.3 Albumin 3.7 Globulin 3.7 Albumin/Globulin Ratio 1.0 Assessment & Plan (1) History of tuberculosis Status: Resolved (2) Post-inflammatory scarring Status: Chronic Comment: doubt active tb in light of lack of symptoms. lung findings on CT secondary to old tb (3) Shoulder pain, right Status: Acute Comment: would do shoulder x-rays
[2017-04-01] MEDS: Albuterol-Ipratrop 3 mg / 0.5 (3 ml) UD INH SCH ×3 (00:22→16:02)
[2017-04-01] MEDS: Acetylcysteine 20% Inhal Soln (4ml) INH SCH ×3 (00:22→16:02)
[2017-04-01 07:28] LABS: BASO % 0.5 % (0.0-2.0); EOS # 0.3 K/uL (0.0-0.7); EOS % 5.7 % (0.0-4.0); HEMATOCRIT 38.9 % (34.0-47.0); LYMPH # 1.5 K/uL (1.0-4.3); LYMPH % 25.6 % (20.0-40.0); MEAN CELL VOLUME 84.8 fL (81.0-99.0); MEAN CORPUSCULAR HEMOGLOBIN 27.8 pg (27.0-31.0); MEAN CORPUSCULAR HGB CONC 32.8 g/dL (33.0-37.0); MEAN PLATELET VOLUME 7.8 fL (7.2-11.7); MONO # 0.6 K/uL (0.0-0.8); NRBC % 0.1 % (0.0-2.0); RED CELL DISTRIBUTION WIDTH 13.5 % (11.5-14.5)
[2017-04-01 07:44] LABS: ALKALINE PHOSPHATASE 52 U/L (38-126); ALT/SGPT 36 U/L (9-52); AST/SGOT 21 U/L (14-36); BILIRUBIN,TOTAL 0.5 mg/dL (0.2-1.3); BLOOD UREA NITROGEN 12 mg/dL (7-17); CALCIUM 8.1 mg/dl (8.6-10.4); CARBON DIOXIDE 26 mmol/L (22-30); CHLORIDE 105 mmol/L (98-107); GFR AFRICAN-AMERICAN > 60; GLUCOSE,RANDOM 98 mg/dL (65-105); MAGNESIUM 1.8 mg/dL (1.6-2.3); PHOSPHOROUS 4.7 mg/dL (2.5-4.5); SODIUM 138 mmol/L (132-148); TOTAL PROTEIN 7.5 g/dL (6.3-8.3)
--- NOTE | 2017-04-01 07:49 | CP.PCM.PN ---
<Abimael Lane - Last Filed: 04/01/17 15:45> Subjective - Date & Time of Evaluation Date of Evaluation: 04/01/17 Time of Evaluation: 07:35 - Subjective Subjective: PGY-[address] Vargsa's service: Pt seen and examined at bedside. Nursing reports no acute events overnight. Patient found lying comfortably in bed watching TV. Patient admits slight cough , and has been able to produce sputum this AM. She denies pain in the shoulder at this time, or headache overnight. She further denies fever, chills, nausea, vomiting, chest pain, SOB, palpitations, pain with inspiration. She is moving bowels and tolerating diet without difficulty. Objective - Vital Signs/Intake and Output Vital Signs (last 24 hours): Temp Pulse Resp BP Pulse Ox 98 F 69 20 109/68 99 04/01/17 01:01 04/01/17 01:01 04/01/17 01:01 04/01/17 01:01 04/01/17 01:01 - Medications Medications: Current Medications Acetaminophen (Tylenol 325mg Tab) 650 mg PO Q6 PRN PRN Reason: Pain, moderate (4-7) Acetylcysteine (Acetylcysteine 20%) 4 ml INH RQ8 [facility] Last Admin: 04/01/17 00:22 Dose: 4 ml Albuterol/Ipratropium (Duoneb 3 Mg/0.5 Mg (3 Ml) Ud) 3 ml INH RQ8 [facility] Last Admin: 04/01/17 00:22 Dose: 3 ml Famotidine (Pepcid) 20 mg PO DAILY [facility] Ceftriaxone Sodium 1 gm/ (Sodium Chloride) 100 mls @ 200 mls/hr IVPB DAILY [facility] Last Admin: 03/31/17 09:42 Dose: 200 mls/hr Ketorolac Tromethamine (Toradol) 15 mg IVP Q6 PRN PRN Reason: Pain, severe (8-10) Pneumococcal Polyvalent Vaccine (Pneumovax 23 Vaccine) 0.5 ml IM .ONCE ONE Stop: 04/01/17 10:01 - Labs Labs: 04/01/17 07:18 03/31/17 07:12 - Constitutional Appears: Non-toxic, No Acute Distress - Head Exam Head Exam: ATRAUMATIC, NORMAL INSPECTION - Eye Exam Eye Exam: EOMI, Normal appearance. absent: Scleral icterus - ENT Exam ENT Exam: Mucous Membranes Moist - Neck Exam Neck Exam: absent: Tenderness - Respiratory Exam Respiratory Exam: Decreased Breath Sounds, NORMAL BREATHING PATTERN. absent: Rhonchi, Wheezes - Cardiovascular Exam Cardiovascular Exam: REGULAR RHYTHM, +S1, +S2 - GI/Abdominal Exam GI & Abdominal Exam: Soft, Normal Bowel Sounds. absent: Tenderness - Extremities Exam Extremities Exam: Normal Inspection. absent: Pedal Edema Additional comments: No shoulder apprehension, point tenderness in shoulder Negative Empty can - Back Exam Back Exam: absent: CVA tenderness (L), CVA tenderness (R) - Neurological Exam Neurological Exam: Alert, Awake, Oriented x3 - Psychiatric Exam Psychiatric exam: Normal Affect, Normal Mood - Skin Skin Exam: Normal Color, Warm Assessment and Plan - Assessment and Plan (Free Text) Plan: History of treatment for tuberculosis Assessment & Plan: Diagnosed at 18 and treated R/o active TB: * F/U AFB culture and smear Duonebs Q8H and Acetylcystein INH q8h to induce sputum production Imaging: CT chest:Right-sided volume loss with small effusion; right upper lobe volume loss with patchy airspace disease greatest at the apex suggest pneumonia, followup chest x-rays suggested to document resolution; right lower lobe airspace disease atelectasis and/or infiltrate; no pathologic adenopathy; no aneurysm, dissection or pulmonary embolus; gallstones Chest X-ray: Small right pleural effusion. Patchy increased markings at the right lung base. Reticular opacities at the right lung apex of uncertain clinical etiology. This may be related to external apparatus. Clinical correlation. Alternatively, correlation with chest CT may be helpful if clinically indicated. ID Consult, Dr. Orozco, help appreciated: - xrays c/w old TB. Await AFB smears - may need FOB Pulm consult, Dr. Light - doubt active TB. Lung findings on CT secondary to old TB Strain of right trapezius muscle Assessment & Plan: (04/01/17) Pt denies pain this AM - will not order Xrays at this time, but will consider if pain persists Pain control * Tylenol 650mg PO Q6 prn ( Moderate pain) * Toradol 15mg IV Q6 prn ( Severe pain) Educated stretching exercise for the trapezium muscle Status: Acute Elevated d-dimer Assessment & Plan: On admission: 1013 CT Chest: Right-sided volume loss with small effusion; right upper lobe volume loss with patchy airspace disease greatest at the apex suggest pneumonia, followup chest x-rays suggested to document resolution; right lower lobe airspace disease atelectasis and/or infiltrate; no pathologic adenopathy; no aneurysm, dissection or pulmonary embolus; gallstones Status: Acute Pneumonia, Community Aquired Assessment & Plan: Possible Pneumonia as per CT chest reading CT chest:Right-sided volume loss with small effusion; right upper lobe volume loss with patchy airspace disease greatest at the apex suggest pneumonia, followup chest x-rays suggested to document resolution; right lower lobe airspace disease atelectasis and/or infiltrate; no pathologic adenopathy; no aneurysm, dissection or pulmonary embolus; gallstones Chest X-ray: Small right pleural effusion. Patchy increased markings at the right lung base. Reticular opacities at the right lung apex of uncertain clinical etiology. This may be related to external apparatus. Clinical correlation. Alternatively, correlation with chest CT may be helpful if clinically indicated. Medications: * Rocephin 1gm daily (start 03/31/17) Status: Acute Hyperphosphatemia Phos 4.7 on AM labs - mild elevation, will monitor Prophylactic measure Assessment & Plan: GI: Pepcid 20mg PO daily DVT: Risk score : 1 point; SCDs Status: Acute Abimael Murch PGY-2 Discussed with attending, Dr. Vargas <Marshal Vargas - Last Filed: 04/01/17 17:48> Objective - Vital Signs/Intake and Output Vital Signs (last 24 hours): Temp Pulse Resp BP Pulse Ox 98.3 F 72 20 119/81 98 04/01/17 15:16 04/01/17 15:16 04/01/17 15:16 04/01/17 15:16 04/01/17 15:16 Intake and Output: 04/01/17 04/01/17 06:59 18:59 Intake Total 600 Balance 600 - Medications Medications: Current Medications Acetaminophen (Tylenol 325mg Tab) 650 mg PO Q6 PRN PRN Reason: Pain, moderate (4-7) Acetylcysteine (Acetylcysteine 20%) 4 ml INH RQ8 [facility] Last Admin: 04/01/17 16:02 Dose: 4 ml Albuterol/Ipratropium (Duoneb 3 Mg/0.5 Mg (3 Ml) Ud) 3 ml INH RQ8 [facility] Last Admin: 04/01/17 16:02 Dose: 3 ml Famotidine (Pepcid) 20 mg PO DAILY [facility] Last Admin: 04/01/17 10:17 Dose: 20 mg Ceftriaxone Sodium 1 gm/ (Sodium Chloride) 100 mls @ 200 mls/hr IVPB DAILY [facility] Last Admin: 04/01/17 10:17 Dose: 200 mls/hr Ketorolac Tromethamine (Toradol) 15 mg IVP Q6 PRN PRN Reason: Pain, severe (8-10) Pneumococcal Polyvalent Vaccine (Pneumovax 23 Vaccine) 0.5 ml IM .ONCE ONE Stop: 04/06/17 10:01 - Labs Labs: 04/01/17 07:18 04/01/17 07:18 Assessment and Plan - Assessment and Plan (Free Text) Assessment: Medical consult: Patient was seen and examined by me, agrees the above note by medical clerk. The patient reports that she did not have any acute events overnight. She feels well. She was able to give us one sputum culture - the results of which are pending at this time. Her currently waiting on additional sputum AFBs to return. She does not have white blood cell count, she does not have fevers, and blood pressure stable Today she did not have any right arm pain and she had full range of motion of the right arm Thank you very much, Marshal Vargas
[2017-04-01] MEDS ORDERED: Influenza Vaccine 60 mcg/0.5 mL SYR (4YR UP) IM ONE (10:00)
[2017-04-01] MEDS ORDERED: Pneumococcal 23-Valent Vaccine IM ONE (10:00)
--- NOTE | 2017-04-01 16:53 | CP.PCM.PN ---
Subjective - Date & Time of Evaluation Date of Evaluation: 04/01/17 Time of Evaluation: 09:00 - Subjective Subjective: afeb alerert less cough Objective - Vital Signs/Intake and Output Vital Signs (last 24 hours): Temp Pulse Resp BP Pulse Ox 98.3 F 72 20 119/81 98 04/01/17 15:16 04/01/17 15:16 04/01/17 15:16 04/01/17 15:16 04/01/17 15:16 Intake and Output: 04/01/17 04/01/17 06:59 18:59 Intake Total 600 Balance 600 - Medications Medications: Current Medications Acetaminophen (Tylenol 325mg Tab) 650 mg PO Q6 PRN PRN Reason: Pain, moderate (4-7) Acetylcysteine (Acetylcysteine 20%) 4 ml INH RQ8 [facility] Last Admin: 04/01/17 16:02 Dose: 4 ml Albuterol/Ipratropium (Duoneb 3 Mg/0.5 Mg (3 Ml) Ud) 3 ml INH RQ8 [facility] Last Admin: 04/01/17 16:02 Dose: 3 ml Famotidine (Pepcid) 20 mg PO DAILY [facility] Last Admin: 04/01/17 10:17 Dose: 20 mg Ceftriaxone Sodium 1 gm/ (Sodium Chloride) 100 mls @ 200 mls/hr IVPB DAILY [facility] Last Admin: 04/01/17 10:17 Dose: 200 mls/hr Ketorolac Tromethamine (Toradol) 15 mg IVP Q6 PRN PRN Reason: Pain, severe (8-10) - Labs Labs: 04/01/17 07:18 04/01/17 07:18 - Constitutional Appears: Non-toxic - Head Exam Head Exam: NORMOCEPHALIC - Eye Exam Eye Exam: PERRL - ENT Exam ENT Exam: Mucous Membranes Dry - Neck Exam Neck Exam: absent: Lymphadenopathy - Respiratory Exam Respiratory Exam: Decreased Breath Sounds - Cardiovascular Exam Cardiovascular Exam: REGULAR RHYTHM - GI/Abdominal Exam GI & Abdominal Exam: Distended - Rectal Exam Rectal Exam: Deferred Assessment and Plan (1) History of treatment for tuberculosis Status: Acute (2) Pneumonia Status: Acute - Assessment and Plan (Free Text) Assessment: cont rx await AFB smears likley old TB
--- NOTE | 2017-04-02 01:06 | CP.PCM.PN ---
<Kelly Wang Sommer - Last Filed: 04/02/17 01:13> Subjective - Date & Time of Evaluation Date of Evaluation: 04/02/17 Time of Evaluation: 01:10 - Subjective Subjective: Medicine Hospitalist service PGY-1 note---> Dr. Vargas's service Patient was seen and examined at bedside. As per nursing, patient has had no acute issues. Patient states that she is doing well and has no complaints. Patient denies chest pain, SOB, palpitations, cough, fever, chills, nausea, vomiting and right shoulder pain. Patient is tolerating diet and ambulating. Objective - Vital Signs/Intake and Output Vital Signs (last 24 hours): Temp Pulse Resp BP Pulse Ox 98.1 F 64 20 134/77 96 04/01/17 23:10 04/01/17 23:10 04/01/17 23:10 04/01/17 23:10 04/01/17 23:10 Intake and Output: 04/01/17 04/02/17 18:59 06:59 Intake Total 600 240 Balance 600 240 - Medications Medications: Current Medications Acetaminophen (Tylenol 325mg Tab) 650 mg PO Q6 PRN PRN Reason: Pain, moderate (4-7) Acetylcysteine (Acetylcysteine 20%) 4 ml INH RQ8 [facility] Last Admin: 04/01/17 16:02 Dose: 4 ml Albuterol/Ipratropium (Duoneb 3 Mg/0.5 Mg (3 Ml) Ud) 3 ml INH RQ8 [facility] Last Admin: 04/01/17 16:02 Dose: 3 ml Famotidine (Pepcid) 20 mg PO DAILY [facility] Last Admin: 04/01/17 10:17 Dose: 20 mg Ceftriaxone Sodium 1 gm/ (Sodium Chloride) 100 mls @ 200 mls/hr IVPB DAILY [facility] Last Admin: 04/01/17 10:17 Dose: 200 mls/hr Ketorolac Tromethamine (Toradol) 15 mg IVP Q6 PRN PRN Reason: Pain, severe (8-10) Pneumococcal Polyvalent Vaccine (Pneumovax 23 Vaccine) 0.5 ml IM .ONCE ONE Stop: 04/06/17 10:01 - Labs Labs: 04/01/17 07:18 04/01/17 07:18 - Constitutional Appears: Well, No Acute Distress - Head Exam Head Exam: ATRAUMATIC, NORMAL INSPECTION - Eye Exam Eye Exam: EOMI, Normal appearance - ENT Exam ENT Exam: Mucous Membranes Moist - Respiratory Exam Respiratory Exam: Clear to Ausculation Bilateral, NORMAL BREATHING PATTERN. absent: Decreased Breath Sounds, Rales, Rhonchi, Wheezes, Respiratory Distress, Stridor - Cardiovascular Exam Cardiovascular Exam: REGULAR RHYTHM, +S1, +S2 - GI/Abdominal Exam GI & Abdominal Exam: Soft, Normal Bowel Sounds. absent: Distended, Firm, Guarding, Rigid, Tenderness - Extremities Exam Extremities Exam: Normal Inspection. absent: Calf Tenderness, Pedal Edema - Neurological Exam Neurological Exam: Alert, Awake, Oriented x3 - Psychiatric Exam Psychiatric exam: Normal Affect, Normal Mood - Skin Skin Exam: Normal Color Assessment and Plan (1) History of treatment for tuberculosis Assessment & Plan: Pulm consult, Dr. Light - doubt active TB. Lung findings on CT secondary to old TB ID Consult, Dr. Orozco, help appreciated: - xrays c/w old TB. Await AFB smears - may need FOB Diagnosed at 18 and treated R/o active TB: * F/U AFB culture and smear Duonebs Q8H and Acetylcystein INH q8h to induce sputum production Imaging: CT chest:Right-sided volume loss with small effusion; right upper lobe volume loss with patchy airspace disease greatest at the apex suggest pneumonia, followup chest x-rays suggested to document resolution; right lower lobe airspace disease atelectasis and/or infiltrate; no pathologic adenopathy; no aneurysm, dissection or pulmonary embolus; gallstones Chest X-ray: Small right pleural effusion. Patchy increased markings at the right lung base. Reticular opacities at the right lung apex of uncertain clinical etiology. This may be related to external apparatus. Clinical correlation. Alternatively, correlation with chest CT may be helpful if clinically indicated. Status: Chronic (2) Strain of right trapezius muscle Assessment & Plan: Resolving 04/01/17) Pt denies pain this AM - will not order Xrays at this time, but will consider if pain persists Pain control * Tylenol 650mg PO Q6 prn ( Moderate pain) * Toradol 15mg IV Q6 prn ( Severe pain) Educated on stretching exercise for the trapezium muscle Status: Resolved (3) Elevated d-dimer Assessment & Plan: On admission: 1013 CT Chest: Right-sided volume loss with small effusion; right upper lobe volume loss with patchy airspace disease greatest at the apex suggest pneumonia, followup chest x-rays suggested to document resolution; right lower lobe airspace disease atelectasis and/or infiltrate; no pathologic adenopathy; no aneurysm, dissection or pulmonary embolus; gallstones Status: Acute (4) Pneumonia Assessment & Plan: Possible Pneumonia as per CT chest reading CT chest:Right-sided volume loss with small effusion; right upper lobe volume loss with patchy airspace disease greatest at the apex suggest pneumonia, followup chest x-rays suggested to document resolution; right lower lobe airspace disease atelectasis and/or infiltrate; no pathologic adenopathy; no aneurysm, dissection or pulmonary embolus; gallstones Chest X-ray: Small right pleural effusion. Patchy increased markings at the right lung base. Reticular opacities at the right lung apex of uncertain clinical etiology. This may be related to external apparatus. Clinical correlation. Alternatively, correlation with chest CT may be helpful if clinically indicated. Medications: * Rocephin 1gm daily (start 03/31/17) Status: Acute (5) Hyperphosphatemia Assessment & Plan: Phos 4.7 on AM labs - mild elevation, will monitor with next am labs Status: Acute (6) Prophylactic measure Assessment & Plan: GI: Pepcid 20mg PO daily DVT: Risk score : 1 point; SCDs Status: Acute <Marshal Vargas H - Last Filed: 04/02/17 11:36> Objective - Vital Signs/Intake and Output Vital Signs (last 24 hours): Temp Pulse Resp BP Pulse Ox 97.9 F 66 20 114/71 92 L 04/02/17 07:44 04/02/17 07:44 04/02/17 07:44 04/02/17 07:44 04/02/17 07:44 Intake and Output: 04/02/17 04/02/17 06:59 18:59 Intake Total 240 Balance 240 - Medications Medications: Current Medications Acetaminophen (Tylenol 325mg Tab) 650 mg PO Q6 PRN PRN Reason: Pain, moderate (4-7) Acetylcysteine (Acetylcysteine 20%) 4 ml INH RQ8 [facility] Last Admin: 04/02/17 08:15 Dose: 4 ml Albuterol/Ipratropium (Duoneb 3 Mg/0.5 Mg (3 Ml) Ud) 3 ml INH RQ8 [facility] Last Admin: 04/02/17 08:15 Dose: 3 ml Famotidine (Pepcid) 20 mg PO DAILY [facility] Last Admin: 04/02/17 09:45 Dose: 20 mg Ceftriaxone Sodium 1 gm/ (Sodium Chloride) 100 mls @ 200 mls/hr IVPB DAILY [facility] Last Admin: 04/02/17 09:45 Dose: 200 mls/hr Ketorolac Tromethamine (Toradol) 15 mg IVP Q6 PRN PRN Reason: Pain, severe (8-10) Pneumococcal Polyvalent Vaccine (Pneumovax 23 Vaccine) 0.5 ml IM .ONCE ONE Stop: 04/06/17 10:01 - Labs Labs: 04/02/17 08:00 04/02/17 08:00 Attending/Attestation - Attestation I have personally seen and examined this patient.: Yes I have fully participated in the care of the patient.: Yes I have reviewed all pertinent clinical information, including history, physical exam and plan: Yes Notes (Text): Medical attending: Patient was seen and examined by me as well Agree with the above When I came in to see her, she was not in any acute distress. She was talking on the phone Denied fever, denied shortness of breath, denied chest pain, denied coughing. We are pending the AFBs at the moment. thank you Marshal Vargas
[2017-04-02] MEDS: Albuterol-Ipratrop 3 mg / 0.5 (3 ml) UD INH SCH ×4 (01:40→23:49)
[2017-04-02] MEDS: Acetylcysteine 20% Inhal Soln (4ml) INH SCH ×3 (01:40→21:08)
[2017-04-02 08:26] LABS: BASO % 0.6 % (0.0-2.0); EOS # 0.5 K/uL (0.0-0.7); EOS % 7.7 % (0.0-4.0); LYMPH # 1.5 K/uL (1.0-4.3); LYMPH % 25.2 % (20.0-40.0); MEAN CELL VOLUME 84.9 fL (81.0-99.0); MEAN CORPUSCULAR HEMOGLOBIN 28.8 pg (27.0-31.0); MEAN CORPUSCULAR HGB CONC 33.9 g/dL (33.0-37.0); MONO # 0.6 K/uL (0.0-0.8); MONO % 10.2 % (0.0-10.0); NRBC % 0.1 % (0.0-2.0); WHITE BLOOD COUNT 5.9 K/uL (4.8-10.8)
[2017-04-02 08:44] LABS: ALKALINE PHOSPHATASE 55 U/L (38-126); ALT/SGPT 43 U/L (9-52); AST/SGOT 28 U/L (14-36); BILIRUBIN,TOTAL 0.7 mg/dL (0.2-1.3); BLOOD UREA NITROGEN 12 mg/dL (7-17); CALCIUM 8.4 mg/dl (8.6-10.4); CARBON DIOXIDE 25 mmol/L (22-30); CHLORIDE 103 mmol/L (98-107); GFR AFRICAN-AMERICAN > 60; GLUCOSE,RANDOM 92 mg/dL (65-105); MAGNESIUM 1.9 mg/dL (1.6-2.3); PHOSPHOROUS 3.9 mg/dL (2.5-4.5); POTASSIUM 4.2 mmol/L (3.6-5.2); SODIUM 137 mmol/L (132-148); TOTAL PROTEIN 7.7 g/dL (6.3-8.3)
[2017-04-02] MEDS ORDERED: Influenza Vaccine 60 mcg/0.5 mL SYR (4YR UP) IM ONE (10:00)
[2017-04-02] MEDS ORDERED: Pneumococcal 23-Valent Vaccine IM ONE (10:00)
--- NOTE | 2017-04-03 05:09 | CP.PCM.PN ---
<FelipeMirella mcdonaldsuly E - Last Filed: 04/03/17 05:12> Subjective - Date & Time of Evaluation Date of Evaluation: 04/03/17 Time of Evaluation: 00:40 - Subjective Subjective: Medicine Hospitalist service PGY-1 note---> Dr. Vargas's service Patient was seen and examined at bedside. As per nursing, patient has had no acute issues. Patient states that she is doing well and has no complaints. Patient denies chest pain, SOB, palpitations, cough, fever, chills, nausea, vomiting and right shoulder pain. Patient is tolerating diet and ambulating. Objective - Vital Signs/Intake and Output Vital Signs (last 24 hours): Temp Pulse Resp BP Pulse Ox 97.9 F 79 20 103/66 95 04/03/17 00:00 04/03/17 00:00 04/03/17 00:00 04/03/17 00:00 04/03/17 00:00 Intake and Output: 04/02/17 04/03/17 18:59 06:59 Intake Total 580 300 Balance 580 300 - Medications Medications: Current Medications Acetaminophen (Tylenol 325mg Tab) 650 mg PO Q6 PRN PRN Reason: Pain, moderate (4-7) Acetylcysteine (Acetylcysteine 20%) 4 ml INH RQ8 [facility] Last Admin: 04/02/17 21:08 Dose: Not Given Albuterol/Ipratropium (Duoneb 3 Mg/0.5 Mg (3 Ml) Ud) 3 ml INH RQ8 [facility] Last Admin: 04/02/17 23:49 Dose: Not Given Famotidine (Pepcid) 20 mg PO DAILY [facility] Last Admin: 04/02/17 09:45 Dose: 20 mg Ceftriaxone Sodium 1 gm/ (Sodium Chloride) 100 mls @ 200 mls/hr IVPB DAILY [facility] Last Admin: 04/02/17 09:45 Dose: 200 mls/hr Ketorolac Tromethamine (Toradol) 15 mg IVP Q6 PRN PRN Reason: Pain, severe (8-10) Pneumococcal Polyvalent Vaccine (Pneumovax 23 Vaccine) 0.5 ml IM .ONCE ONE Stop: 04/06/17 10:01 - Labs Labs: 04/02/17 08:00 04/02/17 08:00 - Constitutional Appears: Well, No Acute Distress - Head Exam Head Exam: ATRAUMATIC, NORMAL INSPECTION - Eye Exam Eye Exam: EOMI, Normal appearance - ENT Exam ENT Exam: Mucous Membranes Moist - Respiratory Exam Respiratory Exam: Clear to Ausculation Bilateral, NORMAL BREATHING PATTERN - Cardiovascular Exam Cardiovascular Exam: REGULAR RHYTHM, +S1, +S2 - GI/Abdominal Exam GI & Abdominal Exam: Soft, Normal Bowel Sounds. absent: Tenderness - Extremities Exam Extremities Exam: Normal Inspection. absent: Calf Tenderness, Pedal Edema, Tenderness - Neurological Exam Neurological Exam: Alert, Awake, Oriented x3 - Psychiatric Exam Psychiatric exam: Normal Affect, Normal Mood - Skin Skin Exam: Normal Color Assessment and Plan (1) History of treatment for tuberculosis Assessment & Plan: Pulm consult, Dr. Light - doubt active TB. Lung findings on CT secondary to old TB ID Consult, Dr. Orozco, help appreciated: - xrays c/w old TB. Await AFB smears - may need FOB Diagnosed at 18 and treated R/o active TB: * AFB culture and smear negative X1; F/u two more culture and smear Imaging: CT chest:Right-sided volume loss with small effusion; right upper lobe volume loss with patchy airspace disease greatest at the apex suggest pneumonia, followup chest x-rays suggested to document resolution; right lower lobe airspace disease atelectasis and/or infiltrate; no pathologic adenopathy; no aneurysm, dissection or pulmonary embolus; gallstones Chest X-ray: Small right pleural effusion. Patchy increased markings at the right lung base. Reticular opacities at the right lung apex of uncertain clinical etiology. This may be related to external apparatus. Clinical correlation. Alternatively, correlation with chest CT may be helpful if clinically indicated. Status: Chronic (2) Strain of right trapezius muscle Assessment & Plan: Resolved 04/01/17) Pt denies pain this AM - will not order Xrays at this time, but will consider if pain persists Pain control * Tylenol 650mg PO Q6 prn ( Moderate pain) * Toradol 15mg IV Q6 prn ( Severe pain) Educated on stretching exercise for the trapezium muscle Status: Resolved (3) Elevated d-dimer Assessment & Plan: On admission: 1013 CT Chest: Right-sided volume loss with small effusion; right upper lobe volume loss with patchy airspace disease greatest at the apex suggest pneumonia, followup chest x-rays suggested to document resolution; right lower lobe airspace disease atelectasis and/or infiltrate; no pathologic adenopathy; no aneurysm, dissection or pulmonary embolus; gallstones Status: Acute (4) Pneumonia Assessment & Plan: Possible Pneumonia as per CT chest reading CT chest:Right-sided volume loss with small effusion; right upper lobe volume loss with patchy airspace disease greatest at the apex suggest pneumonia, followup chest x-rays suggested to document resolution; right lower lobe airspace disease atelectasis and/or infiltrate; no pathologic adenopathy; no aneurysm, dissection or pulmonary embolus; gallstones Chest X-ray: Small right pleural effusion. Patchy increased markings at the right lung base. Reticular opacities at the right lung apex of uncertain clinical etiology. This may be related to external apparatus. Clinical correlation. Alternatively, correlation with chest CT may be helpful if clinically indicated. Medications: * Rocephin 1gm daily (start 03/31/17) Status: Acute (5) Hyperphosphatemia Assessment & Plan: Resolved Phos 4.7 (04/01/17) Status: Acute (6) Prophylactic measure Assessment & Plan: GI: Pepcid 20mg PO daily DVT: Risk score : 1 point; SCDs Status: Acute <Marshal Vargas H - Last Filed: 04/03/17 11:40> Objective - Vital Signs/Intake and Output Vital Signs (last 24 hours): Temp Pulse Resp BP Pulse Ox 97.8 F 75 20 108/67 97 04/03/17 09:09 04/03/17 09:09 04/03/17 09:09 04/03/17 09:09 04/03/17 09:09 Intake and Output: 04/03/17 04/03/17 06:59 18:59 Intake Total 300 Balance 300 - Medications Medications: Current Medications Acetaminophen (Tylenol 325mg Tab) 650 mg PO Q6 PRN PRN Reason: Pain, moderate (4-7) Famotidine (Pepcid) 20 mg PO DAILY [facility] Last Admin: 04/03/17 09:54 Dose: 20 mg Ceftriaxone Sodium 1 gm/ (Dextrose) 50 mls @ 100 mls/hr IVPB DAILY [facility] Last Admin: 04/03/17 09:54 Dose: 100 mls/hr Ketorolac Tromethamine (Toradol) 15 mg IVP Q6 PRN PRN Reason: Pain, severe (8-10) Pneumococcal Polyvalent Vaccine (Pneumovax 23 Vaccine) 0.5 ml IM .ONCE ONE Stop: 04/06/17 10:01 - Labs Labs: 04/03/17 07:12 04/03/17 07:12 Attending/Attestation - Attestation I have personally seen and examined this patient.: Yes I have fully participated in the care of the patient.: Yes I have reviewed all pertinent clinical information, including history, physical exam and plan: Yes Notes (Text): Medical attending: Patient was seen and examined by me. The patient was not in any acute distress when I saw her She denied coughing and denied shortness of breath, she reports bathroom ok and also tolerating diet well. There is one AFB that has returned and is negative thank you Marshal Vargas
[2017-04-03 07:22] LABS: BASO % 0.5 % (0.0-2.0); EOS # 0.5 K/uL (0.0-0.7); EOS % 8.2 % (0.0-4.0); HEMATOCRIT 40.9 % (34.0-47.0); LYMPH # 1.5 K/uL (1.0-4.3); LYMPH % 23.1 % (20.0-40.0); MEAN CELL VOLUME 84.8 fL (81.0-99.0); MEAN CORPUSCULAR HEMOGLOBIN 28.7 pg (27.0-31.0); MEAN CORPUSCULAR HGB CONC 33.8 g/dL (33.0-37.0); MONO # 0.7 K/uL (0.0-0.8); MONO % 10.1 % (0.0-10.0); NRBC % 0.2 % (0.0-2.0); WHITE BLOOD COUNT 6.5 K/uL (4.8-10.8)
[2017-04-03 08:05] LABS: ALKALINE PHOSPHATASE 57 U/L (38-126); ALT/SGPT 48 U/L (9-52); AST/SGOT 33 U/L (14-36); BILIRUBIN,TOTAL 0.7 mg/dL (0.2-1.3); BLOOD UREA NITROGEN 16 mg/dL (7-17); CALCIUM 8.7 mg/dl (8.6-10.4); CARBON DIOXIDE 29 mmol/L (22-30); CHLORIDE 101 mmol/L (98-107); GFR AFRICAN-AMERICAN > 60; GLUCOSE,RANDOM 94 mg/dL (65-105); MAGNESIUM 1.9 mg/dL (1.6-2.3); PHOSPHOROUS 4.4 mg/dL (2.5-4.5); POTASSIUM 4.2 mmol/L (3.6-5.2); SODIUM 136 mmol/L (132-148); TOTAL PROTEIN 7.8 g/dL (6.3-8.3)
--- NOTE | 2017-04-03 15:13 | CP.PCM.PN ---
Subjective - Date & Time of Evaluation Date of Evaluation: 04/03/17 Time of Evaluation: 09:00 - Subjective Subjective: improving rx in progress TB unlikely Objective - Vital Signs/Intake and Output Vital Signs (last 24 hours): Temp Pulse Resp BP Pulse Ox 97.8 F 75 20 108/67 97 04/03/17 09:09 04/03/17 09:09 04/03/17 09:09 04/03/17 09:09 04/03/17 09:09 Intake and Output: 04/03/17 04/03/17 06:59 18:59 Intake Total 300 480 Balance 300 480 - Medications Medications: Current Medications Acetaminophen (Tylenol 325mg Tab) 650 mg PO Q6 PRN PRN Reason: Pain, moderate (4-7) Famotidine (Pepcid) 20 mg PO DAILY [facility] Last Admin: 04/03/17 09:54 Dose: 20 mg Ceftriaxone Sodium 1 gm/ (Dextrose) 50 mls @ 100 mls/hr IVPB DAILY [facility] Last Admin: 04/03/17 09:54 Dose: 100 mls/hr Ketorolac Tromethamine (Toradol) 15 mg IVP Q6 PRN PRN Reason: Pain, severe (8-10) Pneumococcal Polyvalent Vaccine (Pneumovax 23 Vaccine) 0.5 ml IM .ONCE ONE Stop: 04/06/17 10:01 - Labs Labs: 04/03/17 07:12 04/03/17 07:12 - Constitutional Appears: Non-toxic, Chronically Ill - Head Exam Head Exam: NORMOCEPHALIC - Eye Exam Eye Exam: PERRL - ENT Exam ENT Exam: Mucous Membranes Dry - Neck Exam Neck Exam: absent: Lymphadenopathy - Respiratory Exam Respiratory Exam: Decreased Breath Sounds - Cardiovascular Exam Cardiovascular Exam: REGULAR RHYTHM - GI/Abdominal Exam GI & Abdominal Exam: Distended, Soft - Rectal Exam Rectal Exam: Deferred - Exam Exam: NORMAL INSPECTION - Extremities Exam Extremities Exam: absent: Calf Tenderness, Pedal Edema - Back Exam Back Exam: absent: CVA tenderness (L), CVA tenderness (R) - Neurological Exam Neurological Exam: Alert, Awake, Normal Gait, Oriented x3 Assessment and Plan (1) History of treatment for tuberculosis Status: Chronic (2) Pneumonia Status: Acute
[2017-04-04 07:23] VITALS: BP 124/75; PULSE 71; RESP 20; TEMP 98; O2SAT 96
[2017-04-04 07:56] LABS: BASO % 0.6 % (0.0-2.0); EOS # 0.4 K/uL (0.0-0.7); EOS % 6.7 % (0.0-4.0); HEMATOCRIT 39.9 % (34.0-47.0); LYMPH # 1.3 K/uL (1.0-4.3); LYMPH % 23.1 % (20.0-40.0); MEAN CELL VOLUME 84.9 fL (81.0-99.0); MEAN CORPUSCULAR HEMOGLOBIN 29.1 pg (27.0-31.0); MEAN CORPUSCULAR HGB CONC 34.3 g/dL (33.0-37.0); MEAN PLATELET VOLUME 7.9 fL (7.2-11.7); MONO # 0.6 K/uL (0.0-0.8); MONO % 9.8 % (0.0-10.0); NRBC % 0.1 % (0.0-2.0); RED CELL DISTRIBUTION WIDTH 14.1 % (11.5-14.5); WHITE BLOOD COUNT 5.8 K/uL (4.8-10.8)
[2017-04-04 08:04] LABS: ALKALINE PHOSPHATASE 54 U/L (38-126); ALT/SGPT 41 U/L (9-52); AST/SGOT 26 U/L (14-36); BILIRUBIN,TOTAL 0.6 mg/dL (0.2-1.3); BLOOD UREA NITROGEN 17 mg/dL (7-17); CALCIUM 8.3 mg/dl (8.6-10.4); CARBON DIOXIDE 28 mmol/L (22-30); CHLORIDE 103 mmol/L (98-107); GFR AFRICAN-AMERICAN > 60; GLUCOSE,RANDOM 97 mg/dL (65-105); MAGNESIUM 1.8 mg/dL (1.6-2.3); SODIUM 137 mmol/L (132-148); TOTAL PROTEIN 7.6 g/dL (6.3-8.3)
--- NOTE | 2017-04-04 09:30 | CP.PCM.PN ---
Subjective - Date & Time of Evaluation Date of Evaluation: 04/04/17 Time of Evaluation: 09:19 - Subjective Subjective: PGY-[address] Lloyd No acute events overnight noted. Patient in negative pressure room; airbone isolation maintained. Objective - Vital Signs/Intake and Output Vital Signs (last 24 hours): Temp Pulse Resp BP Pulse Ox 98 F 71 20 124/75 96 04/04/17 07:19 04/04/17 07:19 04/04/17 07:19 04/04/17 07:19 04/04/17 07:19 - Medications Medications: Current Medications Acetaminophen (Tylenol 325mg Tab) 650 mg PO Q6 PRN PRN Reason: Pain, moderate (4-7) Famotidine (Pepcid) 20 mg PO DAILY [facility] Last Admin: 04/03/17 09:54 Dose: 20 mg Ceftriaxone Sodium 1 gm/ (Dextrose) 50 mls @ 100 mls/hr IVPB DAILY [facility] Last Admin: 04/03/17 09:54 Dose: 100 mls/hr Ketorolac Tromethamine (Toradol) 15 mg IVP Q6 PRN PRN Reason: Pain, severe (8-10) Pneumococcal Polyvalent Vaccine (Pneumovax 23 Vaccine) 0.5 ml IM .ONCE ONE Stop: 04/06/17 10:01 - Labs Labs: 04/04/17 07:30 04/04/17 07:30 - Additional Findings Additional findings: - Constitutional Appears: Well, No Acute Distress - Head Exam Head Exam: ATRAUMATIC, NORMAL INSPECTION - Eye Exam Eye Exam: EOMI, Normal appearance - ENT Exam ENT Exam: Mucous Membranes Moist - Respiratory Exam Respiratory Exam: Clear to Ausculation Bilateral, NORMAL BREATHING PATTERN - Cardiovascular Exam Cardiovascular Exam: REGULAR RHYTHM, +S1, +S2 - GI/Abdominal Exam GI & Abdominal Exam: Soft, Normal Bowel Sounds. absent: Tenderness - Extremities Exam Extremities Exam: Normal Inspection. absent: Calf Tenderness, Pedal Edema, Tenderness - Neurological Exam Neurological Exam: Alert, Awake, Oriented x3 - Psychiatric Exam Psychiatric exam: Normal Affect, Normal Mood - Skin Skin Exam: Normal Color Assessment and Plan - Assessment and Plan (Free Text) Assessment: (1) History of treatment for tuberculosis Assessment & Plan: ID Consult, Dr. Orozco Pulm consult, Dr. Light Diagnosed at 18 and treated at that time in [place] On airborne isolation AFB sputum stains negative for acid fast bacilli x3 (preliminary) Sputum culture 03/31 negative Doubt active TB. Lung findings on CT secondary to old TB Meds: Ceftriaxone 1g IVPB QD Acetaminophen 650mg PO QD6 PRN Ketorolac 15mg IVP Q6 PRN Imaging: CT chest 03/30: Right-sided volume loss with small effusion; right upper lobe volume loss with patchy airspace disease greatest at the apex suggest pneumonia , followup chest x-rays suggested to document resolution; right lower lobe airspace disease atelectasis and/or infiltrate; no pathologic adenopathy; no aneurysm, dissection or pulmonary embolus; gallstones Chest X-ray 03/30: Small right pleural effusion. Patchy increased markings at the right lung base. Reticular opacities at the right lung apex of uncertain clinical etiology. This may be related to external apparatus. Status: Chronic (2) Strain of right trapezius muscle, Resolved Assessment & Plan: Resolved Tylenol 650mg PO Q6 prn (Moderate pain) Toradol 15mg IV Q6 prn (Severe pain) Educated on stretching exercise for the trapezium muscle Status: Resolved (3) Elevated d-dimer Assessment & Plan: On admission: 1013 CT Chest 03/30: Right-sided volume loss with small effusion; right upper lobe volume loss with patchy airspace disease greatest at the apex suggest pneumonia , followup chest x-rays suggested to document resolution; right lower lobe airspace disease atelectasis and/or infiltrate; no pathologic adenopathy; no aneurysm, dissection or pulmonary embolus; gallstones Status: Acute (4) Pneumonia Assessment & Plan: Possible Pneumonia as per CT chest reading No leukocytosis, afebrile Meds: Ceftriaxone 1g IVPB QD started 03/31 Acetaminophen 650mg PO QD6 PRN Ketorolac 15mg IVP Q[address] chest 03/30: Right-sided volume loss with small effusion; right upper lobe volume loss with patchy airspace disease greatest at the apex suggest pneumonia , followup chest x-rays suggested to document resolution; right lower lobe airspace disease atelectasis and/or infiltrate; no pathologic adenopathy; no aneurysm, dissection or pulmonary embolus; gallstones Chest X-ray 03/30: Small right pleural effusion. Patchy increased markings at the right lung base. Reticular opacities at the right lung apex of uncertain clinical etiology. This may be related to external apparatus. Status: Acute (5) Hyperphosphatemia, Resolved Assessment & Plan: Resolved Phos 4.7 (04/01/17) Status: Acute (6) Prophylactic measure Assessment & Plan: GI: Pepcid 20mg PO daily DVT: Risk score : 1 point; SCDs Regular Diet Status: Acute
--- NOTE | 2017-04-04 12:40 | CP.PCM.DIS ---
Provider - Provider Date of Admission: 03/30/17 21:12 Attending physician: Marshal Vargas DO Primary care physician: PMD: none Consults: Infectious Disease: Dr Orozco Pulmonary: Dr Zuñiga Time Spent in preparation of Discharge (in minutes): 39 Hospital Course - Lab Results Lab Results: Micro Results 04/01/17 Unknown Other: Please Indicate Mycobacterial Culture - Preliminary 04/02/17 Unknown Other: Please Indicate Mycobacterial Culture - Preliminary 03/31/17 23:52 Other: Please Indicate Mycobacterial Culture - Preliminary 03/31/17 22:39 Sputum Induced Gram Stain - Final 03/31/17 22:39 Sputum Induced Sputum Culture - Final NORMAL SAPROPHYTIC LEIGHA Most Recent Lab Values WBC 5.8 K/uL (4.8-10.8) 04/04/17 07:30 RBC 4.70 Mil/uL (3.80-5.20) 04/04/17 07:30 Hgb 13.7 g/dL (11.0-16.0) 04/04/17 07:30 Hct 39.9 % (34.0-47.0) 04/04/17 07:30 MCV 84.9 fL (81.0-99.0) 04/04/17 07:30 MCH 29.1 pg (27.0-31.0) 04/04/17 07:30 MCHC 34.3 g/dL (33.0-37.0) 04/04/17 07:30 RDW 14.1 % (11.5-14.5) 04/04/17 07:30 Plt Count 397 K/uL (130-400) 04/04/17 07:30 MPV 7.9 fL (7.2-11.7) 04/04/17 07:30 Neut % (Auto) 59.8 % (50.0-75.0) 04/04/17 07:30 Lymph % (Auto) 23.1 % (20.0-40.0) 04/04/17 07:30 [place] % (Auto) 9.8 % (0.0-10.0) 04/04/17 07:30 Eos % (Auto) 6.7 % (0.0-4.0) H 04/04/17 07:30 Baso % (Auto) 0.6 % (0.0-2.0) 04/04/17 07:30 Neut # 3.5 K/uL (1.8-7.0) 04/04/17 07:30 Lymph # 1.3 K/uL (1.0-4.3) 04/04/17 07:30 [place] # 0.6 K/uL (0.0-0.8) 04/04/17 07:30 Eos # 0.4 K/uL (0.0-0.7) 04/04/17 07:30 Baso # 0.0 K/uL (0.0-0.2) 04/04/17 07:30 D-Dimer, Quantitative 1013 ng/mlDDU (0-243) H 03/30/17 17:13 Sodium 137 mmol/L (132-148) 04/04/17 07:30 Potassium 4.0 mmol/L (3.6-5.2) 04/04/17 07:30 Chloride 103 mmol/L (98-107) 04/04/17 07:30 Carbon Dioxide 28 mmol/L (22-30) 04/04/17 07:30 Anion Gap 9 (10-20) L 04/04/17 07:30 BUN 17 mg/dL (7-17) 04/04/17 07:30 Creatinine 0.9 mg/dL (0.7-1.2) 04/04/17 07:30 Est GFR ( Amer) > 60 04/04/17 07:30 Est GFR (Non-Af Amer) > 60 04/04/17 07:30 Random Glucose 97 mg/dL (65-105) 04/04/17 07:30 Calcium 8.3 mg/dl (8.6-10.4) L 04/04/17 07:30 Phosphorus 4.0 mg/dL (2.5-4.5) 04/04/17 07:30 Magnesium 1.8 mg/dL (1.6-2.3) 04/04/17 07:30 Total Bilirubin 0.6 mg/dL (0.2-1.3) 04/04/17 07:30 AST 26 U/L (14-36) 04/04/17 07:30 ALT 41 U/L (9-52) 04/04/17 07:30 Alkaline Phosphatase 54 U/L (38-126) 04/04/17 07:30 Total Protein 7.6 g/dL (6.3-8.3) 04/04/17 07:30 Albumin 3.8 g/dL (3.5-5.0) 04/04/17 07:30 Globulin 3.8 gm/dL (2.2-3.9) 04/04/17 07:30 Albumin/Globulin Ratio 1.0 (1.0-2.1) 04/04/17 07:30 Urine HCG, Qual Negative (NEGATIVE) 03/30/17 17:24 - Hospital Course Hospital Course: CC: cough HPI: Patient is a 42F with PMH of TB presents to the ED complaining of dry cough that started this morning. Patient says she has also had 2 month of achy right upper chest pain that goes directly into her back at the same level. Patient says she was concerned given her TB history which is why she decided to come in. Patient says she has tried ibuprofen for the pain which makes it better but the pain comes back when it wears off and she only takes the ibuprofen once a day. Patient was first diagnosed with TB at age 18 and she says she was treated in [place] with multiple medications "for a long time". Patient does not recall exactly how many medications or how long. Patient admits to night sweats one time this week as well as occasional generalized headache, SOB, and easy bruising. She denies chills, changes in vision/hearing, sore throat, dizziness, palpitations, abdominal pain, n/v/d/c, blood in urine/ stool, dysuria, leg pain/swelling, rashes, recent travel, sick contacts, change in appetite, and changes in weight. Patient is currently menstruating. PMD: none PMH: TB Meds: ibuprofen PRN pain PSH: denies FH: TB (mother), CVA (brother, sister, father) SH: denies tobacco/alcohol/drug use; lives with Hospital Course: This patient was treated for pneumonia as per CT chest reading. The imaging impressions are included below (see full report for details). The patient was given ceftriaxone 1g IVPB QD which was started on 03/31 and stopped on 04/04. She will be discharged with PO azithromycin 500mg QD for 3 days. Given her history and treatment of tuberculosis, Infectious disease Dr Orozco and Pulmonary Dr Zuñiga were consulted. She was placed on airborne isolation until her AFB sputum stains returned negative. All 3 AFB stains returned negative. It was determined that the lung findings on CT imaging were secondary to her old TB infection. The patient also had elevated d-dimer at 1013. The patient also had hyperphosphatemia at 4.7 which resolved by discharge. The patient also complained of right shoulder pain which was determined to be a strain of right trapezius muscle which was treated with tylenol and toradol, this issue had resolved by discharge. Imaging: CT chest 03/30: Right-sided volume loss with small effusion; right upper lobe volume loss with patchy airspace disease greatest at the apex suggest pneumonia , followup chest x-rays suggested to document resolution; right lower lobe airspace disease atelectasis and/or infiltrate; no pathologic adenopathy; no aneurysm, dissection or pulmonary embolus; gallstones Chest X-ray 03/30: Small right pleural effusion. Patchy increased markings at the right lung base. Reticular opacities at the right lung apex of uncertain clinical etiology. This may be related to external apparatus. Discharge Exam - Head Exam Head Exam: NORMOCEPHALIC - Additional Findings Additional findings: - Constitutional Appears: Well, No Acute Distress - Head Exam Head Exam: ATRAUMATIC, NORMAL INSPECTION - Eye Exam Eye Exam: EOMI, Normal appearance - ENT Exam ENT Exam: Mucous Membranes Moist - Respiratory Exam Respiratory Exam: Clear to Ausculation Bilateral, NORMAL BREATHING PATTERN - Cardiovascular Exam Cardiovascular Exam: REGULAR RHYTHM, +S1, +S2 - GI/Abdominal Exam GI & Abdominal Exam: Soft, Normal Bowel Sounds. absent: Tenderness - Extremities Exam Extremities Exam: Normal Inspection. absent: Calf Tenderness, Pedal Edema, Tenderness - Neurological Exam Neurological Exam: Alert, Awake, Oriented x3 - Psychiatric Exam Psychiatric exam: Normal Affect, Normal Mood - Skin Skin Exam: Normal Color Discharge Plan - Discharge Medications Prescriptions: Azithromycin 500 mg PO DAILY 3 Days #3 tablet - Follow Up Plan Condition: STABLE Disposition: HOME/ ROUTINE Instructions: Community Acquired Pneumonia (DC), Bacterial Pneumonia (DC) Additional Instructions: Patient is medically stable for discharge. Patient will be given a script for the following medications which must be taken as prescribed: Azithromycin 500mg, take 1 tablet once a day with food for the next 3 days The patient should establish care with a Primary medical doctor and see this physician within 1 week so the PMD may be aware of this admission. If symptoms worsen or return, the patient should promptly return to the ER.
[2017-04-04] MEDS ORDERED: Pneumococcal 23-Valent Vaccine IM ONE ×2 (13:00→13:06)
[2017-04-06] MEDS ORDERED: Influenza Vaccine 60 mcg/0.5 mL SYR (4YR UP) IM ONE (10:00)
== END 2017-04-04 13:45 | disposition home or self-care (01) | DRG 90 ==
LOC: C.ER 16:22 → C.9E 21:12 → C.5S 22:01
PROVIDERS: ADMIT Hospitalist; ATTEND Hospitalist
DX: J18.9 Pneumonia, unspecified organism (principal); G47.30 Sleep apnea, unspecified; R79.1 Abnormal coagulation profile; Z79.2 Long term (current) use of antibiotics; Z82.3 Family history of stroke; Z86.11 Personal history of tuberculosis